=== PATIENT | female | born 1985 | race Caucasian/White ===

== ENCOUNTER 2017-02-10 09:42 | Day surgery (SDC) | payer MEDICAID ==
[2017-02-10] MEDS ORDERED: Ketorolac 30 MG/ML SDV IVPUSH ONE (11:39)
[2017-02-10] MEDS ORDERED: Sodium Chloride 0.9% 1,000 ML IV ONE (11:39)
[2017-02-10] MEDS ORDERED: Ondansetron 4 MG/2 ML SDV IVPUSH ONE (11:39)
--- NOTE | 2017-02-10 11:44 | EDM.PDOC ---
ED HPI GI/ABDOMINAL - General Chief Complaint: Abdominal Pain Stated Complaint: LOWER ABD PAIN Time Seen by Provider: 02/10/17 10:40 Source of Information: Reports: Patient, Family History Limitations: Reports: No limitations - History of Present Illness INITIAL COMMENTS - FREE TEXT/NARRATIVE: History of present illness: [21-year-old female comes in complaining of lower pelvic pain. Patient is unable to ascertain whether or not she is indicates that she has not had a menstrual cycle x2 months.] Review of systems: As per history of present illness and below otherwise all systems reviewed and negative. Past medical history: As per history of present illness and as reviewed below otherwise noncontributory. Surgical history: As per history of present illness and as reviewed below otherwise noncontributory. Social history: No reported history of drug or alcohol abuse. Family history: As per history of present illness and as reviewed below otherwise noncontributory. Physical exam: HEENT: Atraumatic, normocephalic, pupils reactive, negative for conjunctival pallor or scleral icterus, mucous membranes moist, throat clear, neck supple, nontender, trachea midline. Lungs: Clear to auscultation, breath sounds equal bilaterally, chest nontender. Heart: S1S2, regular, negative for clicks, rubs, or JVD. Abdomen: Soft, nondistended, nontender. Negative for masses or hepatosplenomegaly. Negative for costovertebral tenderness. Pelvis: Stable nontender. Genitourinary: Deferred. Rectal: Deferred. Extremities: Atraumatic, negative for cords or calf pain. Neurovascular unremarkable. Neuro: Awake, alert, oriented. Cranial nerves II through XII unremarkable. Cerebellum unremarkable. Motor and sensory unremarkable throughout. Exam nonfocal. Dr. Collins called with orders to give antibiotics, pain medication and admitted to the floor Diagnostics: [CBC, CMP, UA, urine hCG] Therapeutics: [IV fluid, Zofran, to] Impression: [Appendicitis] Plan: [Consult Dr. Collins admit to the floor] Definitive disposition and diagnosis as appropriate pending reevaluation and review of above. - Related Data Allergies/ADRs: Allergies Allergy/AdvReac Type Severity Reaction Status Date / Time Penicillins Allergy Other Verified 02/10/17 10:12 Home Meds: Home Meds . [No Known Home Meds] 11/13/16 [History] Past Medical History - Past Health History Medical/Surgical History: Denies Medical/Surgical History HEENT History: Reports: None Cardiovascular History: Reports: None Respiratory History: Reports: None Gastrointestinal History: Reports: None Genitourinary History: Reports: None [employer] History: Reports: None Musculoskeletal History: Reports: None Neurological History: Reports: None Psychiatric History: Reports: None Endocrine/Metabolic History: Reports: None Hematologic History: Reports: None Immunologic History: Reports: None Oncologic (Cancer) History: Reports: None Dermatologic History: Reports: None - Infectious Disease History Infectious Disease History: Reports: None - Past Surgical History Head Surgeries/Procedures: Reports: None HEENT Surgical History: Reports: None Cardiovascular Surgical History: Reports: None Respiratory Surgical History: Reports: None GI Surgical History: Reports: None Female Surgical History: Reports: None Endocrine Surgical History: Reports: None Neurological Surgical History: Reports: None Musculoskeletal Surgical History: Reports: None Oncologic Surgical History: Reports: None Dermatological Surgical History: Reports: None Social & Family History - Family History Family Medical History: Noncontributory - Tobacco Use Smoking Status *Q: Never Smoker - Caffeine Use Caffeine Use: Reports: None - Recreational Drug Use Recreational Drug Use: No ED ROS GENERAL - Review of Systems Review Of Systems: See Below (The history of present illness) ED EXAM, GI/ABD - Physical Exam Exam: See Below (See history of present illness) Course - Vital Signs Last Recorded V/S: Last Vital Signs Temp 36.6 C 02/10/17 10:09 Pulse 107 H 02/10/17 10:09 Resp 16 02/10/17 10:09 BP 110/61 02/10/17 10:09 Pulse Ox 96 02/10/17 10:09 - Orders/Labs/Meds Orders: Active Orders 24 hr Category Date Time Status Admission Status [Patient Status] [ADT] Stat ADT 02/10/17 13:59 Active Antiembolic Devices [RC] PER UNIT ROUTINE Care 02/10/17 14:00 Active Nothing Per Oral Diet [DIET] Diet 02/10/17 Dinner Active Lactated Ringers [Ringers, Lactated] 1,000 ml Med 02/10/17 14:00 Active IV ASDIRECTED Morphine Med 02/10/17 14:01 Active 1 mg IVPUSH Q1H PRN cefOXitin [Mefoxin] 2 gm Med 02/10/17 14:07 Ordered Sodium Chloride 0.9% [Normal Saline] 50 ml IV ONETIME Sequential Compression Device [OM.PC] Stat Oth 02/10/17 13:59 Ordered Medication Orders Lactated Ringer's (Ringers, Lactated) 1,000 mls @ 125 mls/hr IV ASDIRECTED KEV Cefoxitin Sodium 2 gm/ Sodium (Chloride) 50 mls @ 100 mls/hr IV ONETIME ONE Stop: 02/10/17 14:36 Morphine Sulfate (Morphine) 1 mg IVPUSH Q1H PRN PRN Reason: Pain Labs: Laboratory Tests 02/10/17 02/10/17 02/10/17 Range/Units 10:15 11:03 11:47 WBC 18.47 H (4.0-11.0) K/uL RBC 4.62 (4.30-5.90) M/uL Hgb 13.8 (12.0-16.0) g/dL Hct 41.0 (36.0-46.0) % MCV 88.7 (80.0-98.0) fL MCH 29.9 (27.0-32.0) pg MCHC 33.7 (31.0-37.0) g/dL RDW Std Deviation 43.7 (28.0-62.0) fl RDW Coeff of Del 14 (11.0-15.0) % Plt Count 275 (150-400) K/uL MPV 11.20 (7.40-12.00) fL Neut % (Auto) 84.8 H (48.0-80.0) % Lymph % (Auto) 7.5 L (16.0-40.0) % Giles % (Auto) 7.3 (0.0-15.0) % Eos % (Auto) 0.3 (0.0-7.0) % Baso % (Auto) 0.1 (0.0-1.5) % Neut # (Auto) 15.7 H (1.4-5.7) K/uL Lymph # (Auto) 1.4 (0.6-2.4) K/uL Giles # (Auto) 1.4 H (0.0-0.8) K/uL Eos # (Auto) 0.1 (0.0-0.7) K/uL Baso # (Auto) 0.0 (0.0-0.1) K/uL Nucleated RBC % 0.0 /100WBC Nucleated RBCs # 0 K/uL Sodium (136-146) mmol/L Potassium (3.5-5.1) mmol/L Chloride (98-110) mmol/L Carbon Dioxide (21-31) mmol/L BUN (6.0-23.0) mg/dL Creatinine (0.6-1.5) mg/dL Est Cr Clr Drug Dosing mL/min Estimated GFR (MDRD) ml/min Glucose (60-110) mg/dL Calcium (8.8-10.8) mg/dL Total Bilirubin (0.1-1.5) mg/dL AST (5-40) IU/L ALT (8-54) IU/L Alkaline Phosphatase (40-150) Total Protein (6.0-8.0) g/dL Albumin (3.5-5.0) g/dL Globulin (2.0-3.5) g/dL Albumin/Globulin Ratio (1.3-2.8) Urine Color YELLOW Urine Appearance CLEAR Urine pH 6.0 (5.0-8.0) Ur Specific [place] <= 1.005 (1.001-1.035) Urine Protein NEGATIVE (NEGATIVE) mg/dL Urine Glucose (UA) NEGATIVE (NEGATIVE) mg/dL Urine Ketones NEGATIVE (NEGATIVE) mg/dL Urine Occult Blood TRACE-INTACT (NEGATIVE) Urine Nitrite NEGATIVE (NEGATIVE) Urine Bilirubin NEGATIVE (NEGATIVE) Urine Urobilinogen 0.2 (<2.0) EU/dL Ur Leukocyte Esterase TRACE (NEGATIVE) Urine RBC 0-1 (0-2/HPF) Urine WBC 1-4 (0-5/HPF) Ur Epithelial Cells FEW (NONE-FEW) Urine Bacteria FEW (NEGATIVE) Urine HCG, Qual NEGATIVE (NEGATIVE) 02/10/17 Range/Units 11:47 WBC (4.0-11.0) K/uL RBC (4.30-5.90) M/uL Hgb (12.0-16.0) g/dL Hct (36.0-46.0) % MCV (80.0-98.0) fL MCH (27.0-32.0) pg MCHC (31.0-37.0) g/dL RDW Std Deviation (28.0-62.0) fl RDW Coeff of Del (11.0-15.0) % Plt Count (150-400) K/uL MPV (7.40-12.00) fL Neut % (Auto) (48.0-80.0) % Lymph % (Auto) (16.0-40.0) % Giles % (Auto) (0.0-15.0) % Eos % (Auto) (0.0-7.0) % Baso % (Auto) (0.0-1.5) % Neut # (Auto) (1.4-5.7) K/uL Lymph # (Auto) (0.6-2.4) K/uL Giles # (Auto) (0.0-0.8) K/uL Eos # (Auto) (0.0-0.7) K/uL Baso # (Auto) (0.0-0.1) K/uL Nucleated RBC % /100WBC Nucleated RBCs # K/uL Sodium 137 (136-146) mmol/L Potassium 5.6 H (3.5-5.1) mmol/L Chloride 106 (98-110) mmol/L Carbon Dioxide 20 L (21-31) mmol/L BUN 15 (6.0-23.0) mg/dL Creatinine 0.7 (0.6-1.5) mg/dL Est Cr Clr Drug Dosing 91.25 mL/min Estimated GFR (MDRD) > 60.0 ml/min Glucose 92 (60-110) mg/dL Calcium 9.8 (8.8-10.8) mg/dL Total Bilirubin 1.0 (0.1-1.5) mg/dL AST 37 (5-40) IU/L ALT 29 (8-54) IU/L Alkaline Phosphatase 141 (40-150) Total Protein 8.2 H (6.0-8.0) g/dL Albumin 4.5 (3.5-5.0) g/dL Globulin 3.7 H (2.0-3.5) g/dL Albumin/Globulin Ratio 1.2 L (1.3-2.8) Urine Color Urine Appearance Urine pH (5.0-8.0) Ur Specific [place] (1.001-1.035) Urine Protein (NEGATIVE) mg/dL Urine Glucose (UA) (NEGATIVE) mg/dL Urine Ketones (NEGATIVE) mg/dL Urine Occult Blood (NEGATIVE) Urine Nitrite (NEGATIVE) Urine Bilirubin (NEGATIVE) Urine Urobilinogen (<2.0) EU/dL Ur Leukocyte Esterase (NEGATIVE) Urine RBC (0-2/HPF) Urine WBC (0-5/HPF) Ur Epithelial Cells (NONE-FEW) Urine Bacteria (NEGATIVE) Urine HCG, Qual (NEGATIVE) Meds: Medications Generic Name Dose Route Start Last Admin Trade Name Freq PRN Reason Stop Dose Admin Lactated Ringer's 1,000 mls @ 125 mls/hr 02/10/17 14:00 Ringers, Lactated IV ASDIRECTED KEV Cefoxitin Sodium 2 gm/ Sodium 50 mls @ 100 mls/hr 02/10/17 14:07 Chloride IV 02/10/17 14:36 ONETIME ONE Morphine Sulfate 1 mg 02/10/17 14:01 Morphine IVPUSH Q1H PRN Pain Discontinued Medications Generic Name Dose Route Start Last Admin Trade Name Freq PRN Reason Stop Dose Admin Acetaminophen 1,000 mg 02/10/17 11:58 02/10/17 12:04 Tylenol Extra Strength PO 02/10/17 11:59 1,000 mg ONETIME ONE Administration Sodium Chloride 1,000 mls @ 999 mls/hr 02/10/17 11:39 02/10/17 11:52 Normal Saline IV 02/10/17 12:39 999 mls/hr STAT ONE Administration Cefoxitin Sodium 2 gm/ Premix 50 mls @ 100 mls/hr 02/10/17 13:54 IV 02/10/17 14:23 ONETIME ONE Cefoxitin Sodium 1 gm/ Premix 50 mls @ 100 mls/hr 02/10/17 13:58 IV 02/10/17 14:27 ONETIME ONE Iopamidol 100 ml 02/10/17 13:16 02/10/17 13:29 Isovue Multipack-370 (76%) IVPUSH 02/10/17 13:17 100 ml ONETIME STA Administration Ketorolac Tromethamine 30 mg 02/10/17 11:39 02/10/17 12:43 Toradol IVPUSH 02/10/17 11:40 Not Given ONETIME ONE Ondansetron HCl 8 mg 02/10/17 11:39 02/10/17 11:52 Zofran IVPUSH 02/10/17 11:40 8 mg ONETIME ONE Administration Departure - Departure Time of Disposition: 14:08 Disposition: Admitted As Inpatient 65 Condition: good Clinical Impression: Appendicitis Forms: ED Department Discharge - My Orders Last 24 Hours: My Active Orders 02/10/17 14:07 cefOXitin [Mefoxin] 2 gm Sodium Chloride 0.9% [Normal Saline] 50 ml IV ONETIME - Assessment/Plan Last 24 Hours: My Active Orders 02/10/17 14:07 cefOXitin [Mefoxin] 2 gm Sodium Chloride 0.9% [Normal Saline] 50 ml IV ONETIME
[2017-02-10] MEDS ORDERED: Acetaminophen 500 MG Tab PO ONE (11:58)
[2017-02-10 12:18] LABS: CHLORIDE,CL 106 mmol/L (98-110); SODIUM,NA 137 mmol/L (136-146)
[2017-02-10] MEDS ORDERED: Iopamidol 755 MG/ML 500 ML Multipack Bottle IVPUSH STA (13:16)
--- NOTE | 2017-02-10 13:39 | CT ---
CT of the abdomen and pelvis with contrast. HISTORY: Pain TECHNIQUE: Axial CT images were obtained of the abdomen and pelvis following administration of 100 m L of Isovue-370 in the left antecubital fossa without complication. Coronal and sagittal reconstruct ions obtained. FINDINGS: There is a 3 to 4 mm subpleural nodule within the left lower lobe, otherwise the lung bases are taylor r. The liver, spleen, adrenal glands, and pancreas appear normal. The gallbladder is unremarkable. No b ulky retroperitoneal lymphadenopathy or abdominal ascites. The kidneys enhance and function symmetri susan without evidence of obstructive uropathy. The large and small bowel appear normal in caliber without evidence of obstruction. The appendix is mildly prominent in size and demonstrates mild enhancement with a trace periappendiceal stranding. U rinary bladder appears normal. The uterus and ovaries appear normal. No bulky pelvic lymphadenopathy or significant free pelvic fluid. No suspicious osseous abnormalities identified. IMPRESSION: 1. Appendicitis without evidence of rupture. 2. Small pulmonary nodules the left lower lobe, likely benign given the patient's age.
[2017-02-10] MEDS ORDERED: cefOXitin 2 GM in Premix Bag 1 BAG IV ONE ×2 (13:54→14:45)
[2017-02-10] MEDS ORDERED: cefOXitin 1 GM in Premix Bag 1 BAG IV ONE (13:58)
[2017-02-10] MEDS ORDERED: Lactated Ringers 1,000 ML IV SCH ×2 (14:00→19:00)
[2017-02-10] MEDS ORDERED: Morphine 2 MG/ML Syringe IVPUSH PRN (14:01)
[2017-02-10] MEDS ORDERED: cefOXitin 2 GM in Sodium Chloride 0.9% 50 ML IV ONE (14:07)
[2017-02-10] MEDS ORDERED: Morphine 2 MG/ML Syringe IVPUSH ONE (14:38)
[2017-02-10] MEDS ORDERED: Bupivacaine 0.5% 10 ML SDV ONE ×2 (15:35→17:09)
[2017-02-10] MEDS ORDERED: ceFAZolin 1 GM Vial ONE (15:35)
[2017-02-10] MEDS ORDERED: Lidocaine 2% 5 ML SDV ONE (16:32)
[2017-02-10] MEDS ORDERED: Midazolam 1 MG/ML 2 ML SDV ONE (16:32)
[2017-02-10] MEDS ORDERED: Succinylcholine/Normal Saline 200 MG/10 ML Syringe ONE (16:32)
[2017-02-10] MEDS ORDERED: fentaNYL 100 MCG/2 ML SDV ONE (16:32)
[2017-02-10] MEDS ORDERED: Rocuronium 10 MG/ML 10 ML Syringe ONE (16:32)
[2017-02-10] MEDS ORDERED: Propofol 200 MG/20 ML SDV ONE (16:32)
--- NOTE | 2017-02-10 17:15 | PCM.HP ---
H&P History of Present Illness - General Date of Service: 02/10/17 Admit Problem/Dx: Admission Diagnosis/Problem Admission Diagnosis/Problem Appendicitis Source of Information: Patient, Family History Limitations: Reports: Language barrier (Patient is primarily Macedonian- speaking.) - History of Present Illness Onset of Symptoms: Reports: today Duration of Symptoms: Reports: Hour(s): Location: Reports: abdomen Quality: Reports: Ache, Pressure Severity: moderate Improves with: Reports: Rest Worsens with: Reports: Movement Context: Reports: sick contact Associated Symptoms: Reports: loss of appetite, nausea/vomiting Generalized Pain Score (Numeric/FACES): 5 - Related Data Allergies/Adverse Reactions: Allergies Allergy/AdvReac Type Severity Reaction Status Date / Time Penicillins Allergy Other Verified 02/10/17 10:12 Home Medications: Home Meds . 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: Musculoskeletal History: Reports: None Neurological History: Reports: None Psychiatric History: Reports: None Endocrine/Metabolic History: Reports: None Hematologic History: Reports: None Immunologic History: Reports: None Oncologic (Cancer) History: Reports: None Dermatologic History: Reports: None - Infectious Disease History Infectious Disease History: Reports: None - Past Surgical History Head Surgeries/Procedures: Reports: None HEENT Surgical History: Reports: None Cardiovascular Surgical History: Reports: None Respiratory Surgical History: Reports: None GI Surgical History: Reports: None Female Surgical History: Reports: None Endocrine Surgical History: Reports: None Neurological Surgical History: Reports: None Musculoskeletal Surgical History: Reports: None Oncologic Surgical History: Reports: None Dermatological Surgical History: Reports: None Social & Family History - Family History Family Medical History: Noncontributory Endocrine/Metabolic: Reports: Diabetes, type II - Tobacco Use Smoking Status *Q: Never Smoker - Caffeine Use Caffeine Use: Reports: None - Recreational Drug Use Recreational Drug Use: No H&P Review of Systems - Review of Systems: Review Of Systems: See Below General: Reports: decreased appetite. Denies: fever, chills, malaise, weight loss HEENT: Reports: no symptoms Pulmonary: Denies: Shortness of Breath, Wheezing Cardiovascular: Denies: chest pain, palpitations Gastrointestinal: Reports: Abdominal pain, Anorexia, Decreased appetite, Vomiting. Denies: Black stool, Bloody stool, Constipation, Diarrhea, Hematochezia, Melena Genitourinary: Denies: dysuria, frequency, burning, pain, urgency Musculoskeletal: Reports: no symptoms Skin: Denies: cyanosis, jaundice, pallor, diaphoresis Psychiatric: Denies: confusion, depression, mood lability, anxiety Neurological: Reports: No Symptoms Hematologic/Lymphatic: Reports: no symptoms Immunologic: Reports: no symptoms Exam - Exam Exam: See Below - Vital Signs Vital Signs: Last Vital Signs Temp 99.2 F 02/10/17 14:49 Pulse 82 02/10/17 14:49 Resp 18 02/10/17 14:49 BP 132/76 02/10/17 14:49 Pulse Ox 98 02/10/17 14:49 Weight: 130 lb 8.218 oz - Exam General: alert, oriented, cooperative, mild distress HEENT: Conjunctiva clear, EACs clear, EOMI, Mucosa moist & pink, PERRLA. No: Scleral icterus Neck: supple, trachea midline Lungs: Clear to auscultation, Normal respiratory effort Cardiovascular: regular rate, regular rhythm, normal S1, normal S2. No: tachycardia Abdomen: soft, peritoneal signs, rebound, tenderness, hypoactive bowel sounds, McBurney's sign, Rovsing's sign. No: distention, guarding, rigidity (Female) Exam: Deferred Rectal (Female) Exam: Deferred Back Exam: normal inspection, full range of motion Extremities: normal inspection, normal pulses Skin: warm, dry, intact Neurological: cranial nerves intact Neuro Extensive - Mental Status: alert, oriented x3, normal mood/affect Psychiatric: alert, normal affect, normal mood - Patient Data Lab Results last 24 hrs: Laboratory Results - last 24 hr 02/10/17 02/10/17 02/10/17 Range/Units 10:15 11:03 11:47 WBC 18.47 H (4.0-11.0) K/uL RBC 4.62 (4.30-5.90) M/uL Hgb 13.8 (12.0-16.0) g/dL Hct 41.0 (36.0-46.0) % MCV 88.7 (80.0-98.0) fL MCH 29.9 (27.0-32.0) pg MCHC 33.7 (31.0-37.0) g/dL RDW Std Deviation 43.7 (28.0-62.0) fl RDW Coeff of Del 14 (11.0-15.0) % Plt Count 275 (150-400) K/uL MPV 11.20 (7.40-12.00) fL Neut % (Auto) 84.8 H (48.0-80.0) % Lymph % (Auto) 7.5 L (16.0-40.0) % Henry % (Auto) 7.3 (0.0-15.0) % Eos % (Auto) 0.3 (0.0-7.0) % Baso % (Auto) 0.1 (0.0-1.5) % Neut # (Auto) 15.7 H (1.4-5.7) K/uL Lymph # (Auto) 1.4 (0.6-2.4) K/uL Henry # (Auto) 1.4 H (0.0-0.8) K/uL Eos # (Auto) 0.1 (0.0-0.7) K/uL Baso # (Auto) 0.0 (0.0-0.1) K/uL Nucleated RBC % 0.0 /100WBC Nucleated RBCs # 0 K/uL Sodium (136-146) mmol/L Potassium (3.5-5.1) mmol/L Chloride (98-110) mmol/L Carbon Dioxide (21-31) mmol/L BUN (6.0-23.0) mg/dL Creatinine (0.6-1.5) mg/dL Est Cr Clr Drug Dosing mL/min Estimated GFR (MDRD) ml/min Glucose (60-110) mg/dL Calcium (8.8-10.8) mg/dL Total Bilirubin (0.1-1.5) mg/dL AST (5-40) IU/L ALT (8-54) IU/L Alkaline Phosphatase (40-150) Total Protein (6.0-8.0) g/dL Albumin (3.5-5.0) g/dL Globulin (2.0-3.5) g/dL Albumin/Globulin Ratio (1.3-2.8) Urine Color YELLOW Urine Appearance CLEAR Urine pH 6.0 (5.0-8.0) Ur Specific [place] <= 1.005 (1.001-1.035) Urine Protein NEGATIVE (NEGATIVE) mg/dL Urine Glucose (UA) NEGATIVE (NEGATIVE) mg/dL Urine Ketones NEGATIVE (NEGATIVE) mg/dL Urine Occult Blood TRACE-INTACT (NEGATIVE) Urine Nitrite NEGATIVE (NEGATIVE) Urine Bilirubin NEGATIVE (NEGATIVE) Urine Urobilinogen 0.2 (<2.0) EU/dL Ur Leukocyte Esterase TRACE (NEGATIVE) Urine RBC 0-1 (0-2/HPF) Urine WBC 1-4 (0-5/HPF) Ur Epithelial Cells FEW (NONE-FEW) Urine Bacteria FEW (NEGATIVE) Urine HCG, Qual NEGATIVE (NEGATIVE) 02/10/17 Range/Units 11:47 WBC (4.0-11.0) K/uL RBC (4.30-5.90) M/uL Hgb (12.0-16.0) g/dL Hct (36.0-46.0) % MCV (80.0-98.0) fL MCH (27.0-32.0) pg MCHC (31.0-37.0) g/dL RDW Std Deviation (28.0-62.0) fl RDW Coeff of Del (11.0-15.0) % Plt Count (150-400) K/uL MPV (7.40-12.00) fL Neut % (Auto) (48.0-80.0) % Lymph % (Auto) (16.0-40.0) % Henry % (Auto) (0.0-15.0) % Eos % (Auto) (0.0-7.0) % Baso % (Auto) (0.0-1.5) % Neut # (Auto) (1.4-5.7) K/uL Lymph # (Auto) (0.6-2.4) K/uL [place] # (Auto) (0.0-0.8) K/uL Eos # (Auto) (0.0-0.7) K/uL Baso # (Auto) (0.0-0.1) K/uL Nucleated RBC % /100WBC Nucleated RBCs # K/uL Sodium 137 (136-146) mmol/L Potassium 5.6 H (3.5-5.1) mmol/L Chloride 106 (98-110) mmol/L Carbon Dioxide 20 L (21-31) mmol/L BUN 15 (6.0-23.0) mg/dL Creatinine 0.7 (0.6-1.5) mg/dL Est Cr Clr Drug Dosing 91.25 mL/min Estimated GFR (MDRD) > 60.0 ml/min Glucose 92 (60-110) mg/dL Calcium 9.8 (8.8-10.8) mg/dL Total Bilirubin 1.0 (0.1-1.5) mg/dL AST 37 (5-40) IU/L ALT 29 (8-54) IU/L Alkaline Phosphatase 141 (40-150) Total Protein 8.2 H (6.0-8.0) g/dL Albumin 4.5 (3.5-5.0) g/dL Globulin 3.7 H (2.0-3.5) g/dL Albumin/Globulin Ratio 1.2 L (1.3-2.8) Urine Color Urine Appearance Urine pH (5.0-8.0) Ur Specific [place] (1.001-1.035) Urine Protein (NEGATIVE) mg/dL Urine Glucose (UA) (NEGATIVE) mg/dL Urine Ketones (NEGATIVE) mg/dL Urine Occult Blood (NEGATIVE) Urine Nitrite (NEGATIVE) Urine Bilirubin (NEGATIVE) Urine Urobilinogen (<2.0) EU/dL Ur Leukocyte Esterase (NEGATIVE) Urine RBC (0-2/HPF) Urine WBC (0-5/HPF) Ur Epithelial Cells (NONE-FEW) Urine Bacteria (NEGATIVE) Urine HCG, Qual (NEGATIVE) Result Diagrams: 02/10/17 11:47 02/10/17 11:47 *Q Meaningful Use (ADM) - VTE *Q VTE Criteria *Q: - Stroke *Q Stroke Criteria *Q: - AMI *Q AMI Criteria *Q: - Problem List (1) Right lower quadrant abdominal pain SNOMED Code(s): 630826663 ICD Code: R10.31 - RIGHT LOWER QUADRANT PAIN Status: Acute Priority: Medium Current Visit: Yes (2) Appendicitis SNOMED Code(s): 13837647 ICD Code: K37 - UNSPECIFIED APPENDICITIS Status: Acute Priority: Medium Current Visit: Yes Qualifiers: Appendicitis type: acute appendicitis Problem List Initiated/Reviewed/Updated: Yes Orders Last 24hrs: Active Orders 24 hr Category Date Time Status Admission Status [Patient Status] [ADT] Stat ADT 02/10/17 13:59 Active Antiembolic Devices [RC] PER UNIT ROUTINE Care 02/10/17 14:00 Active Painter Catheter Insertion [Insert Urinary Catheter] [OM. Care 02/10/17 16:00 Ordered PC] Q24H Skin Preparation [RC] .PREOP Care 02/10/17 15:46 Active Urinary Catheter Assessment [RC] ASDIRECTED Care 02/10/17 15:46 Active Urinary Catheter Assessment [RC] ASDIRECTED Care 02/10/17 15:47 Active Lactated Ringers [Ringers, Lactated] 1,000 ml Med 02/10/17 14:00 Active IV ASDIRECTED Morphine Med 02/10/17 14:01 Active 1 mg IVPUSH Q1H PRN Sequential Compression Device [OM.PC] Stat Oth 02/10/17 13:59 Ordered Resuscitation Status Routine Resus Stat 02/10/17 15:46 Ordered Medication Orders Lactated Ringer's (Ringers, Lactated) 1,000 mls @ 125 mls/hr IV ASDIRECTED KEV Last Admin: 02/10/17 16:43 Dose: 125 mls/hr Morphine Sulfate (Morphine) 1 mg IVPUSH Q1H PRN PRN Reason: Pain Assessment/Plan Comment:: Laparoscopic appendectomy, possible open appendectomy. Both operative procedures, along with the risks, including, but not limited to, bleeding, infection, pneumonia, deep venous thrombosis, pulmonary emboli, myocardial infarction, and adjacent organ injury have been reviewed with the patient who voices understanding, offers no questions and agrees to proceed.
--- NOTE | 2017-02-10 17:23 | PCM.PREANE ---
Preanesthetic Assessment - Procedure Proposed Procedure: Laparoscopic appendectomy - Anesthesia/Transfusion/Family Hx Anesthesia History: No Prior Anesthesia Family History of Anesthesia Reaction: No Transfusion History: No Prior Transfusion(s) Additional History: Patient 4 months s/p male. Currently breast pumping with and baby at bedsice. She speaks no Romanian and does not indicate any understanding. communicated with her. Advised of considerations for breast milk effected by anesthetic. - Review of Systems General: Malaise Pulmonary: No Symptoms Cardiovascular: No Symptoms Gastrointestinal: Abdominal pain Neurological: No Symptoms Other: Reports: None - Physical Assessment O2 Sat by Pulse Oximetry: 98 Respiratory Rate: 18 Vital Signs: Last Vital Signs Temp 99.2 F 02/10/17 14:49 Pulse 82 02/10/17 14:49 Resp 18 02/10/17 14:49 BP 132/76 02/10/17 14:49 Pulse Ox 98 02/10/17 14:49 Height: 5 ft 3 in Weight: 130 lb 8.218 oz ASA Class: 2E Mental Status: Alert & Oriented x3 Airway Class: Mallampati = 1 Dentition: Reports: Normal Dentition Thyro-Mental Finger Breadths: 3 Mouth Opening Finger Breadths: 3 ROM/Head Extension: Full Lungs: Clear to auscultation, Normal respiratory effort Cardiovascular: Regular Rate, Regular Rhythm, No Murmurs - Lab Values: Laboratory Last Values WBC 18.47 K/uL (4.0-11.0) H 02/10/17 11:47 RBC 4.62 M/uL (4.30-5.90) 02/10/17 11:47 Hgb 13.8 g/dL (12.0-16.0) 02/10/17 11:47 Hct 41.0 % (36.0-46.0) 02/10/17 11:47 MCV 88.7 fL (80.0-98.0) 02/10/17 11:47 MCH 29.9 pg (27.0-32.0) 02/10/17 11:47 MCHC 33.7 g/dL (31.0-37.0) 02/10/17 11:47 RDW Std Deviation 43.7 fl (28.0-62.0) 02/10/17 11:47 RDW Coeff of Del 14 % (11.0-15.0) 02/10/17 11:47 Plt Count 275 K/uL (150-400) 02/10/17 11:47 MPV 11.20 fL (7.40-12.00) 02/10/17 11:47 Neut % (Auto) 84.8 % (48.0-80.0) H 02/10/17 11:47 Lymph % (Auto) 7.5 % (16.0-40.0) L 02/10/17 11:47 [place] % (Auto) 7.3 % (0.0-15.0) 02/10/17 11:47 Eos % (Auto) 0.3 % (0.0-7.0) 02/10/17 11:47 Baso % (Auto) 0.1 % (0.0-1.5) 02/10/17 11:47 Neut # (Auto) 15.7 K/uL (1.4-5.7) H 02/10/17 11:47 Lymph # (Auto) 1.4 K/uL (0.6-2.4) 02/10/17 11:47 Daw[place] # (Auto) 1.4 K/uL (0.0-0.8) H 02/10/17 11:47 Eos # (Auto) 0.1 K/uL (0.0-0.7) 02/10/17 11:47 Baso # (Auto) 0.0 K/uL (0.0-0.1) 02/10/17 11:47 Nucleated RBC % 0.0 /100WBC 02/10/17 11:47 Nucleated RBCs # 0 K/uL 02/10/17 11:47 Sodium 137 mmol/L (136-146) 02/10/17 11:47 Potassium 5.6 mmol/L (3.5-5.1) H 02/10/17 11:47 Chloride 106 mmol/L (98-110) 02/10/17 11:47 Carbon Dioxide 20 mmol/L (21-31) L 02/10/17 11:47 BUN 15 mg/dL (6.0-23.0) 02/10/17 11:47 Creatinine 0.7 mg/dL (0.6-1.5) 02/10/17 11:47 Est Cr Clr Drug Dosing 91.25 mL/min 02/10/17 11:47 Estimated GFR (MDRD) > 60.0 ml/min 02/10/17 11:47 Glucose 92 mg/dL (60-110) 02/10/17 11:47 Calcium 9.8 mg/dL (8.8-10.8) 02/10/17 11:47 Total Bilirubin 1.0 mg/dL (0.1-1.5) 02/10/17 11:47 AST 37 IU/L (5-40) 02/10/17 11:47 ALT 29 IU/L (8-54) 02/10/17 11:47 Alkaline Phosphatase 141 (40-150) 02/10/17 11:47 Total Protein 8.2 g/dL (6.0-8.0) H 02/10/17 11:47 Albumin 4.5 g/dL (3.5-5.0) 02/10/17 11:47 Globulin 3.7 g/dL (2.0-3.5) H 02/10/17 11:47 Albumin/Globulin Ratio 1.2 (1.3-2.8) L 02/10/17 11:47 Urine Color YELLOW 02/10/17 10:15 Urine Appearance CLEAR 02/10/17 10:15 Urine pH 6.0 (5.0-8.0) 02/10/17 10:15 Ur Specific [place] <= 1.005 (1.001-1.035) 02/10/17 10:15 Urine Protein NEGATIVE mg/dL (NEGATIVE) 02/10/17 10:15 Urine Glucose (UA) NEGATIVE mg/dL (NEGATIVE) 02/10/17 10:15 Urine Ketones NEGATIVE mg/dL (NEGATIVE) 02/10/17 10:15 Urine Occult Blood TRACE-INTACT (NEGATIVE) 02/10/17 10:15 Urine Nitrite NEGATIVE (NEGATIVE) 02/10/17 10:15 Urine Bilirubin NEGATIVE (NEGATIVE) 02/10/17 10:15 Urine Urobilinogen 0.2 EU/dL (<2.0) 02/10/17 10:15 Ur Leukocyte Esterase TRACE (NEGATIVE) 02/10/17 10:15 Urine RBC 0-1 (0-2/HPF) 02/10/17 10:15 Urine WBC 1-4 (0-5/HPF) 02/10/17 10:15 Ur Epithelial Cells FEW (NONE-FEW) 02/10/17 10:15 Urine Bacteria FEW (NEGATIVE) 02/10/17 10:15 Urine HCG, Qual NEGATIVE (NEGATIVE) 02/10/17 11:03 - Allergies Allergies/Adverse Reactions: Allergies Allergy/AdvReac Type Severity Reaction Status Date / Time Penicillins Allergy Other Verified 02/10/17 10:12 - Blood Blood Available: No - Anesthesia Plan Pre-Op Medication Ordered: None - Acknowledgements Anesthesia Type Planned: General Anesthesia Pt an Appropriate Candidate for the Planned Anesthesia: Yes Alternatives and Risks of Anesthesia Discussed w Pt/Guardian: Yes Pt/Guardian Understands and Agrees with Anesthesia Plan: Yes PreAnesthesia Questionnaire - Past Health History Medical/Surgical History: Denies Medical/Surgical History HEENT History: Reports: None Cardiovascular History: Reports: None Respiratory History: Reports: None Gastrointestinal History: Reports: None Genitourinary History: Reports: None 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: Musculoskeletal History: Reports: None Neurological History: Reports: None Psychiatric History: Reports: None Endocrine/Metabolic History: Reports: None Hematologic History: Reports: None Immunologic History: Reports: None Oncologic (Cancer) History: Reports: None Dermatologic History: Reports: None - Infectious Disease History Infectious Disease History: Reports: None - Past Surgical History Head Surgeries/Procedures: Reports: None HEENT Surgical History: Reports: None Cardiovascular Surgical History: Reports: None Respiratory Surgical History: Reports: None GI Surgical History: Reports: None Female Surgical History: Reports: None Endocrine Surgical History: Reports: None Neurological Surgical History: Reports: None Musculoskeletal Surgical History: Reports: None Oncologic Surgical History: Reports: None Dermatological Surgical History: Reports: None - SUBSTANCE USE Smoking Status *Q: Never Smoker Recreational Drug Use History: No - HOME MEDS Home Medications: Home Meds . [No Known Home Meds] 11/13/16 [History] - CURRENT (IN HOUSE) MEDS Current Meds: Current Medications Lactated Ringer's (Ringers, Lactated) 1,000 mls @ 125 mls/hr IV ASDIRECTED [facility] Last Admin: 02/10/17 16:43 Dose: 125 mls/hr Morphine Sulfate (Morphine) 1 mg IVPUSH Q1H PRN PRN Reason: Pain Discontinued Medications Acetaminophen (Tylenol Extra Strength) 1,000 mg PO ONETIME ONE Stop: 02/10/17 11:59 Last Admin: 02/10/17 12:04 Dose: 1,000 mg Bupivacaine HCl (Sensorcaine-Mpf 0.5%) Confirm Administered Dose 20 ml .ROUTE .STK-MED ONE Stop: 02/10/17 15:36 Bupivacaine HCl (Sensorcaine-Mpf 0.5%) Confirm Administered Dose 10 ml .ROUTE .STK-MED ONE Stop: 02/10/17 17:10 Cefazolin Sodium (Ancef) Confirm Administered Dose 1 gm .ROUTE .STK-MED ONE Stop: 02/10/17 15:36 Fentanyl (Sublimaze) Confirm Administered Dose 100 mcg .ROUTE .STK-MED ONE Stop: 02/10/17 16:33 Sodium Chloride (Normal Saline) 1,000 mls @ 999 mls/hr IV STAT ONE Stop: 02/10/17 12:39 Last Admin: 02/10/17 11:52 Dose: 999 mls/hr Cefoxitin Sodium 2 gm/ Premix 50 mls @ 100 mls/hr IV ONETIME ONE Stop: 02/10/17 14:23 Last Admin: 02/10/17 14:41 Dose: Not Given Cefoxitin Sodium 1 gm/ Premix 50 mls @ 100 mls/hr IV ONETIME ONE Stop: 02/10/17 14:27 Last Admin: 02/10/17 14:40 Dose: Not Given Cefoxitin Sodium 2 gm/ Premix 50 mls @ 100 mls/hr IV ONETIME ONE Stop: 02/10/17 15:14 Last Admin: 02/10/17 14:44 Dose: 100 mls/hr Iopamidol (Isovue Multipack-370 (76%)) 100 ml IVPUSH ONETIME STA Stop: 02/10/17 13:17 Last Admin: 02/10/17 13:29 Dose: 100 ml Ketorolac Tromethamine (Toradol) 30 mg IVPUSH ONETIME ONE Stop: 02/10/17 11:40 Last Admin: 02/10/17 12:43 Dose: Not Given Lidocaine (Xylocaine-Mpf 2%) Confirm Administered Dose 5 ml .ROUTE .STK-MED ONE Stop: 02/10/17 16:33 Midazolam HCl (Versed 1 Mg/Ml) Confirm Administered Dose 2 mg .ROUTE .STK-MED ONE Stop: 02/10/17 16:33 Morphine Sulfate (Morphine) 2 mg IVPUSH ONETIME ONE Stop: 02/10/17 14:39 Last Admin: 02/10/17 14:40 Dose: Not Given Ondansetron HCl (Zofran) 8 mg IVPUSH ONETIME ONE Stop: 02/10/17 11:40 Last Admin: 02/10/17 11:52 Dose: 8 mg Propofol (Diprivan 20 Ml) Confirm Administered Dose 200 mg .ROUTE .STK-MED ONE Stop: 02/10/17 16:33 Rocuronium [place] (Zemuron) Confirm Administered Dose 100 mg .ROUTE .STK-MED ONE Stop: 02/10/17 16:33 Succinylcholine Chloride (Succinylcholine In Ns Pf) Confirm Administered Dose 200 mg .ROUTE .STK-MED ONE Stop: 02/10/17 16:33
[2017-02-10] MEDS ORDERED: fentaNYL 100 MCG/2 ML SDV IVPUSH PRN (17:24)
[2017-02-10] MEDS ORDERED: Phenylephrine/Normal Saline 100 MCG/ML 10 ML Syringe ONE (17:53)
[2017-02-10] MEDS ORDERED: Neostigmine Methylsulfate 1 MG/ML 5 ML Syringe ONE (18:31)
[2017-02-10] MEDS ORDERED: Ondansetron 4 MG/2 ML SDV ONE (18:31)
[2017-02-10] MEDS ORDERED: Ketorolac 30 MG/ML SDV ONE (18:31)
[2017-02-10] MEDS ORDERED: Morphine 10 MG/ML Syringe IVPUSH PRN (18:58)
[2017-02-10] MEDS ORDERED: Acetaminophen/HYDROcodone 325-5 MG Tab PO PRN (18:58)
--- NOTE | 2017-02-10 19:04 | PCM.OPNOTE ---
- General Post-Op/Procedure Note Date of Surgery/Procedure: 02/10/17 Operative Procedure(s): Laparoscopic appendectomy Pre Op Diagnosis: Acute abdomen. Appendicitis on CT scan. Post-Op Diagnosis: Early acute appendicitis Anesthesia Technique: General ET tube (IIE) Primary Surgeon: Tao Collins Fluid Replacement, Intraop: 1,600 Output, Urine Amount: 400 EBL in mLs: 5 Condition: Good Free Text/Narrative:: Intake & Output 02/10/17 02/10/17 02/10/17 03:59 11:59 19:59 Intake Total 435 Output Total 0 Balance 435 Dictation [id number]
--- NOTE | 2017-02-10 19:19 | PCM.POSTAN ---
POST ANESTHESIA ASSESSMENT - MENTAL STATUS Mental Status: alert, oriented - RESPIRATORY Respiratory Status: respiratory rate WNL, airway patent, O2 saturation stable - CARDIOVASCULAR CV Status: pulse rate WNL, blood pressure stable - GASTROINTESTINAL GI Status: no symptoms - POST OP HYDRATION Hydration Status: adequate & stable
--- NOTE | 2017-02-10 20:32 | PCM48HPAN ---
Post Anesthesia Note - EVALUATION WITHIN 48HRS OF ANESTHETIC Vital Signs in Normal Range: Yes Patient Participated in Evaluation: Yes Respiratory Function Stable: Yes Airway Patent: Yes Cardiovascular Function Stable: Yes Hydration Status Stable: Yes Pain Control Satisfactory: Yes Nausea and Vomiting Control Satisfactory: Yes Mental Status Recovered: Yes
[2017-02-10 21:29] VITALS: BP 107/70
--- NOTE | 2017-02-10 23:41 | OR ---
SURGEON: Tao Collins M.D. DATE OF PROCEDURE: 02/10/2017 OPERATION PERFORMED: Laparoscopic appendectomy. ANESTHESIA: General endotracheal. ASA CLASSIFICATION: IIE. PREOPERATIVE DIAGNOSIS: Acute abdomen appendicitis on CT scan. POSTOPERATIVE DIAGNOSIS: Early acute appendicitis without perforation. DESCRIPTION OF PROCEDURE: The patient was taken to the operating room, placed on the operating table in supine position. Time-out was called for appropriate identification of patient and procedure. Thigh-high TEDs and sequential compression boots were placed. Following satisfactory attainment of general endotracheal anesthesia, a Painter catheter was placed in the patient's urinary bladder. The abdomen was then prepped with DuraPrep solution. Sterile drapes were applied. The skin just above the umbilicus was infiltrated with 0.5% Marcaine solution. The skin incision was made and deepened through the subcutaneous tissue. Hemostasis was obtained with the use of electrocautery. The Veress needle was introduced into the peritoneal cavity. Saline drop test was positive. Carbon dioxide pneumoperitoneum was established with the release set at 13 cm of water. Once we had satisfactory pneumoperitoneum, 5 mm camera and port were placed through the supraumbilical incision. The patient was now positioned with her head down and rolled to the left. Under camera vision, 12 mm suprapubic and 5 mm left lower quadrant ports were placed. Each incision was preemptively infiltrated with 0.5% Marcaine solution. The appendix was grasped. The mesoappendix was taken down with the Harmonic scalpel. The midportion of the appendix did appear mildly inflamed. No gangrenous changes were noted. There was no perforation. Once the mesoappendix had been completely divided, the appendiceal stump was doubly ligated with 0 PDS endo-loops. The appendix was then transected again using the Harmonic scalpel and placed in an Endopouch. The right lower quadrant was irrigated with several 100 mL of sterile saline solution. All fluid was aspirated. The base of the appendix was inspected and the stump appeared sealed. The Endopouch containing appendix was then removed through the 12 mm port removing the port at the same time. Under camera vision, the 5 mm right lower quadrant port was removed. The CO2 was allowed to evacuate into the operating room atmosphere. The 5 mm supraumbilical camera and port were removed. The patient was now again placed in a neutral position. Small bleeding sites were electrocoagulated. The suprapubic and supraumbilical incisions were closed in 2 layers approximating the subcutaneous tissue with 3-0 Polysorb and the skin with subcuticular 4-0 Monocryl. The left lower quadrant port was closed with subcuticular 4-0 Monocryl. All incisions were Steri- Stripped and dressed with sterile Tegaderm pads. Sponge, needle, and instrument counts were all correct. The patient tolerated the procedure well. Painter catheter was removed prior to emergence from anesthesia. Following emergence from anesthesia and extubation, the patient was taken to recovery room in stable condition. ILENE PATEL /[id number]
== END 2017-02-10 23:50 | disposition home or self-care (01) ==
LOC: MW.ED 09:42 → MW.SDS 15:07 → MW.MS 15:20 → MW.SDS 23:50
PROVIDERS: ATTEND Surgery
PROC: 0DTJ4ZZ Resection of Appendix, Percutaneous Endoscopic Approach (ICD-10-PCS; principal; 2017-02-10)
DX: K35.80 Unspecified acute appendicitis (principal); Z88.0 Allergy status to penicillin
CPT/HCPCS: 36415; 44970; 74177; 80053; 81001; 81025; 85025; 96361; 96374; 96375; 99285; A9270; J1885; J2250; J2405; J3010; J7040; J7120; Q9967; 00840; 88304; 99283; J0690; J2704

== ENCOUNTER 2020-03-01 09:39 | Inpatient (IN) | payer BC ==
[2020-03-01] MEDS ORDERED: Tranexamic Acid 1,000 MG in Sodium Chloride 0.9% 100 ML IV PRN (11:05)
[2020-03-01] MEDS ORDERED: Methylergonovine 0.2 MG/1 ML Amp IM PRN (11:05)
[2020-03-01] MEDS ORDERED: Sodium Chloride 0.9% 10 ML Syringe FLUSH PRN (11:05)
[2020-03-01] MEDS ORDERED: Nalbuphine 10 MG/1 ML Vial IVPUSH PRN (11:05)
[2020-03-01] MEDS ORDERED: Lidocaine 1% 50 ML MDV INJECT PRN (11:05)
[2020-03-01] MEDS ORDERED: Water For Irrigation,Sterile 1,000 ML Container IRR PRN (11:05)
[2020-03-01] MEDS ORDERED: Butorphanol 1 MG/ML SDV IVPUSH PRN (11:05)
[2020-03-01] MEDS ORDERED: Ondansetron 4 MG/2 ML SDV IVPUSH PRN (11:05)
[2020-03-01] MEDS ORDERED: Misoprostol 200 MCG Tab PO PRN (11:05)
[2020-03-01] MEDS ORDERED: Sodium Chloride 0.9% 2.5 ML Syringe FLUSH PRN (11:05)
[2020-03-01] MEDS ORDERED: Carboprost Tromethamine 250 MCG/1 ML Amp IM PRN (11:05)
[2020-03-01] MEDS ORDERED: Sodium Chloride 0.9% 10 ML SDV IV PRN (11:05)
[2020-03-01] MEDS ORDERED: Oxytocin/0.9 % Sodium Chloride 30 UNIT/500 ML BAG IV SCH ×2 (11:15→12:15)
[2020-03-01] MEDS ORDERED: Lactated Ringers 1,000 ML IV SCH (11:15)
--- NOTE | 2020-03-01 12:33 | PCM.LDHP ---
L&D History of Present Illness - General Date of Service: 03/01/20 Admit Problem/Dx: Patient Status Order with Admit Dx/Problem 03/01/20 10:11 Patient Status [ADT] Routine 03/01/20 11:05 Patient Status [ADT] Routine Admission Diagnosis/Problem Admission Diagnosis/Problem 03/01/20 12:29 presenting at 39 weeks (RAFA: 03/08/20) with report of "big gush of fluid" at approximately 0830 today; reports clear fluid without odor; contractions q4- 6 minutes. SVE 5-6 cm/75%/-3, soft midposition per nurse report. O+, rubella immune, GBS negative Source of Information: Patient, Significant Other (Significant other serving as clinical nursing manager) History Limitations: Reports: No Limitations - History of Present Illness Associated Symptoms: Reports: vaginal fluid, moderate amount - Related Data Allergies/Adverse Reactions: Allergies Allergy/AdvReac Type Severity Reaction Status Date / Time Penicillins Allergy Other Verified 03/01/20 10:09 Home Medications: Home Meds Vits #93/Iron Fum/FA [ Formula Tablet] 1 each PO DAILY [History] Past Medical History - Past Health History Medical/Surgical History: Denies Medical/Surgical History HEENT History: Reports: None Cardiovascular History: Reports: None Respiratory History: Reports: None Gastrointestinal History: Reports: None Genitourinary History: Reports: None 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: Musculoskeletal History: Reports: None Neurological History: Reports: None Psychiatric History: Reports: None Endocrine/Metabolic History: Reports: None Hematologic History: Reports: None Immunologic History: Reports: None Oncologic (Cancer) History: Reports: None Dermatologic History: Reports: None - Infectious Disease History Infectious Disease History: Reports: None - Past Surgical History Head Surgeries/Procedures: Reports: None HEENT Surgical History: Reports: None Cardiovascular Surgical History: Reports: None Respiratory Surgical History: Reports: None GI Surgical History: Reports: None Female Surgical History: Reports: None Endocrine Surgical History: Reports: None Neurological Surgical History: Reports: None Musculoskeletal Surgical History: Reports: None Oncologic Surgical History: Reports: None Dermatological Surgical History: Reports: None Social & Family History - Family History Family Medical History: Noncontributory Endocrine/Metabolic: Reports: Diabetes, type II - Tobacco Use Smoking Status *Q: Never Smoker Second Hand Smoke Exposure: No - Caffeine Use Caffeine Use: Reports: None - Recreational Drug Use Recreational Drug Use: No Drug Use in Last 12 Months: No H&P Review of Systems - Review of Systems: Review Of Systems: See Below General: Reports: No Symptoms HEENT: Reports: No Symptoms Pulmonary: Reports: No Symptoms Cardiovascular: Reports: No Symptoms Gastrointestinal: Reports: No Symptoms Genitourinary: Reports: No Symptoms Musculoskeletal: Reports: No Symptoms Skin: Reports: No Symptoms Psychiatric: Reports: No Symptoms Neurological: Reports: No Symptoms Hematologic/Lymphatic: Reports: No Symptoms Immunologic: Reports: No Symptoms L&D Exam - Exam Exam: See Below - Vital Signs Weight: 168 lb - OB Specific Contraction Intensity: Mild to Moderate Movement: Active Heart Tones: Present Heart Rate (FHR) Variability: Moderate (6-25 bmp) Presentation: Vertex - Jacob Score Jacob Score Cervix Position: Midposition Jacob Score Consistency: Soft Jacob Score Effacement: 51-70% Jacob Score Dilation: > 5 cm Jacob Score Infant's Station: -3 Jacob Score Total: 8 - Exam General: Alert, Oriented, Cooperative Lungs: Normal Respiratory Effort Cardiovascular: Regular Rate, Regular Rhythm GI/Abdominal Exam: Soft, Non-Tender Rectal Exam: Deferred Genitourinary: Deferred Back Exam: Normal Inspection, Full Range of Motion Extremities: Normal Inspection, Normal Range of Motion, Non-Tender, Normal Capillary Refill Skin: Warm, Dry, Intact Neurological: Normal Gait, Normal Speech, Normal Tone, Sensation Intact Psychiatric: Alert, Normal Affect, Normal Mood - Patient Data Lab Results Last 24 hrs: Laboratory Results - last 24 hr 03/01/20 03/01/20 Range/Units 10:29 11:23 WBC 12.31 H (4.0-11.0) K/uL RBC 4.30 (4.30-5.90) M/uL Hgb 12.8 (12.0-16.0) g/dL Hct 38.9 (36.0-46.0) % MCV 90.5 (80.0-98.0) fL MCH 29.8 (27.0-32.0) pg MCHC 32.9 (31.0-37.0) g/dL RDW Std Deviation 46.5 (28.0-62.0) fl RDW Coeff of Del 14 (11.0-15.0) % Plt Count 189 (150-400) K/uL MPV 13.10 H (7.40-12.00) fL Nucleated RBC % 0.0 /100WBC Nucleated RBCs # 0 K/uL Membrane Rupture NEGATIVE Result Diagrams: 03/01/20 11:23 - Problem List (1) Supervision of normal IUP (intrauterine ) in multigravida SNOMED Code(s): 636430276, 845902618, 750807334 ICD Code: Z34.80 - ENCOUNTER FOR SUPRVSN OF NORMAL , UNSP TRIMESTER Status: Acute Priority: High Current Visit: Yes Qualifiers: Trimester: third trimester Qualified Code(s): Z34.83 - Encounter for supervision of other normal , third trimester Problem List Initiated/Reviewed/Updated: Yes Orders Last 24hrs: Active Orders 24 hr Category Date Time Status Patient Status [ADT] Routine ADT 03/01/20 10:11 Active Patient Status [ADT] Routine ADT 03/01/20 11:05 Active Communication Order [RC] ASDIRECTED Care 03/01/20 12:06 Active Communication Order [RC] ASDIRECTED Care 03/01/20 12:06 Active Heart Tones [RC] INTERMITTENT Care 03/01/20 11:05 Active Non Stress Test [RC] PER UNIT ROUTINE Care 03/01/20 10:11 Active Non Stress Test [RC] PER UNIT ROUTINE Care 03/01/20 11:05 Active May Shower [RC] ASDIRECTED Care 03/01/20 11:05 Active Notify Provider [RC] PRN Care 03/01/20 11:05 Active Notify Provider [RC] PRN Care 03/01/20 12:06 Active Oxygen Therapy [RC] ASDIRECTED Care 03/01/20 12:06 Active Up ad Sara [RC] ASDIRECTED Care 03/01/20 10:11 Active Up ad Sara [RC] ASDIRECTED Care 03/01/20 11:05 Active Vaginal Exam [RC] Click to Edit Care 03/01/20 10:11 Active Vaginal Exam [RC] PRN Care 03/01/20 11:05 Active Vaginal Exam [RC] PRN Care 03/01/20 12:06 Active Vital Signs [RC] PER UNIT ROUTINE Care 03/01/20 10:11 Active Vital Signs [RC] PER UNIT ROUTINE Care 03/01/20 11:05 Active Vital Signs [RC] PER UNIT ROUTINE Care 03/01/20 12:06 Active Clear Liquid Diet [DIET] Diet 03/01/20 Breakfast Active RPR (SYPHILIS SERO) W/ RFLX [REF] Routine Lab 03/01/20 11:23 Received TYPE AND SCREEN [BBK] Routine Lab 03/01/20 11:23 Received Butorphanol [Stadol] Med 03/01/20 11:05 Active 1 mg IVPUSH Q1H PRN Carboprost Tromethamine [Hemabate DS] Med 03/01/20 11:05 Active 250 mcg IM ASDIRECTED PRN Lactated Ringers [Ringers, Lactated] 1,000 ml Med 03/01/20 11:15 Active IV ASDIRECTED Lidocaine 1% [Xylocaine 1%] Med 03/01/20 11:05 Active 50 ml INJECT ONETIME PRN Methylergonovine [Methergine] Med 03/01/20 11:05 Active 0.2 mg IM ASDIRECTED PRN Nalbuphine [Nubain] Med 03/01/20 11:05 Active 10 mg IVPUSH Q1H PRN Ondansetron [Zofran] Med 03/01/20 11:05 Active 4 mg IVPUSH Q4H PRN Oxytocin/0.9 % Sodium Chloride [Oxytocin 30 Unit/500 ML Med 03/01/20 11:15 Active -NS] 30 unit in 500 ml IV TITRATE Oxytocin/0.9 % Sodium Chloride [Oxytocin 30 Unit/500 ML Med 03/01/20 12:15 Active -NS] 30 unit in 500 ml IV TITRATE Sodium Chloride 0.9% [Normal Saline] Med 03/01/20 11:05 Active 10 ml IV ASDIRECTED PRN Sodium Chloride 0.9% [Saline Flush] Med 03/01/20 11:05 Active 10 ml FLUSH ASDIRECTED PRN Sodium Chloride 0.9% [Saline Flush] Med 03/01/20 11:05 Active 2.5 ml FLUSH ASDIRECTED PRN Tranexamic Acid [Cyklokapron] 1,000 mg Med 03/01/20 11:05 Active Sodium Chloride 0.9% [Normal Saline] 100 ml IV ONETIME Water For Irrigation,Sterile [Sterile Water for Med 03/01/20 11:05 Active Irrigation] 1,000 ml IRR ASDIRECTED PRN miSOPROStoL [Cytotec] Med 03/01/20 11:05 Active 200 mcg PO ONETIME PRN Scalp Electrode [WOMSER] Per Unit Routine Oth 03/01/20 11:05 Ordered Peripheral IV Insertion Adult [OM.PC] Routine Oth 03/01/20 11:05 Ordered Resuscitation Status Routine Resus Stat 03/01/20 10:11 Ordered Medication Orders Butorphanol Tartrate (Stadol) 1 mg IVPUSH Q1H PRN PRN Reason: Pain Carboprost Tromethamine (Hemabate Ds) 250 mcg IM ASDIRECTED PRN PRN Reason: Post Hemorrhage Tranexamic Acid 1,000 mg/ (Sodium Chloride) 110 mls @ 660 mls/hr IV ONETIME PRN PRN Reason: Bleeding Lactated Ringer's (Ringers, Lactated) 1,000 mls @ 150 mls/hr IV ASDIRECTED KEV Oxytocin/Sodium Chloride (Oxytocin 30 Unit/500 Ml-Ns) 30 unit in 500 mls @ 500 mls/hr IV TITRATE KEV Oxytocin/Sodium Chloride (Oxytocin 30 Unit/500 Ml-Ns) 30 unit in 500 mls @ 2 mls/hr IV TITRATE KEV; Protocol Lidocaine HCl (Xylocaine 1%) 50 ml INJECT ONETIME PRN PRN Reason: Laceration repair Methylergonovine Maleate (Methergine) 0.2 mg IM ASDIRECTED PRN PRN Reason: Post Hemorrhage Misoprostol (Cytotec) 200 mcg PO ONETIME PRN PRN Reason: Post Hemorrhage Nalbuphine HCl (Nubain) 10 mg IVPUSH Q1H PRN PRN Reason: Pain (severe 7-10) Ondansetron HCl (Zofran) 4 mg IVPUSH Q4H PRN PRN Reason: Nausea/Vomiting Sodium Chloride (Saline Flush) 10 ml FLUSH ASDIRECTED PRN PRN Reason: Keep Vein Open Sodium Chloride (Saline Flush) 2.5 ml FLUSH ASDIRECTED PRN PRN Reason: Keep Vein Open Sodium Chloride (Normal Saline) 10 ml IV ASDIRECTED PRN PRN Reason: IV Use Sterile Water (Sterile Water For Irrigation) 1,000 ml IRR ASDIRECTED PRN PRN Reason: delivery Assessment/Plan Comment:: Admit A: presenting at 39 weeks (RAFA: 03/08/20); contractions q4-6 minutes. SVE 5-6 cm/75%/-3, soft midposition per nurse report. O+, rubella immune, GBS negative P: Admit; pitocin PRN, epidural PRN; anticipate ; Dr. Suárez updated.
[2020-03-01] MEDS ORDERED: Acetaminophen 500 MG Tab PO PRN (19:40)
[2020-03-01] MEDS ORDERED: Benzocaine/Menthol 20%-0.5% Spray 78 GM Cannister TOP PRN (19:40)
[2020-03-01] MEDS ORDERED: Docusate Sodium 100 MG Cap PO PRN (19:40)
[2020-03-01] MEDS ORDERED: Bisacodyl 10 MG Supp RECTAL PRN (19:40)
[2020-03-01] MEDS ORDERED: Lanolin 100% Cream 7 GM Tube TOP PRN (19:40)
[2020-03-01] MEDS ORDERED: Ibuprofen 400 MG Tab PO PRN (19:40)
[2020-03-01] MEDS ORDERED: Witch Hazel Medicated Pads 40/Jar TOP PRN (19:40)
[2020-03-01] MEDS ORDERED: oxyCODONE 5 MG Tab PO PRN (19:40)
--- NOTE | 2020-03-01 19:46 | PCM.DEL ---
L & D Note - General Info Date of Service: 03/01/20 Mother's Due Date: 03/08/20 - Delivery Note Labor: Spontaneous, Augmented by Oxytocin Delivery Outcome: Livebirth Infant Delivery Method: Spontaneous Vaginal Delivery-Twins Delivery Mode: Vacuum Extraction Presentation: Vertex Nuchal Cord: None Anesthesia Type: None Episiotomy Type: None Laceration: None Placenta: Intact, Spontaneous Cord: 3 Vessels Estimated Blood Loss: 250 : Suctioned, Bulb Syringe, Stimulated Second Stage Interventions: Reports: Second Nurse Assessed Progress of Descent, Second Nurse Reviewed Contraction Pattern, Second Nurse Reviewed Heart Tones, Encouragement Given Delivery Comments (Free Text/Narrative):: Vacuum-assisted (by Dr. Suárez) vaginal delivery viable infant female; head delivered, shoulders and body followed after; baby to mom's abdomen skin-to- skin for assessment, spontaneous cry; cord doubly clamped and cut after 2 minutes; baby to warmer for continued assessment; weight and APGARs pending; placenta delivered grossly intact, 3VC, EBL 250 mL; perineum intact; mom and baby left in stable condition with nurse at bedside for assessment - General Info Date of Service: 03/01/20 Admission Dx/Problem (Free Text): Patient Status Order with Admit Dx/Problem 03/01/20 10:11 Patient Status [ADT] Routine 03/01/20 11:05 Patient Status [ADT] Routine Admission Diagnosis/Problem Admission Diagnosis/Problem 03/01/20 12:29 presenting at 39 weeks (RAFA: 03/08/20) with report of "big gush of fluid" at approximately 0830 today; reports clear fluid without odor; contractions q4- 6 minutes. SVE 5-6 cm/75%/-3, soft midposition per nurse report. O+, rubella immune, GBS negative Functional Status: Reports: Pain Controlled - Review of Systems General: Reports: No Symptoms HEENT: Reports: No Symptoms Pulmonary: Reports: No Symptoms Cardiovascular: Reports: No Symptoms Gastrointestinal: Reports: No Symptoms Genitourinary: Reports: No Symptoms Musculoskeletal: Reports: No Symptoms Skin: Reports: No Symptoms Neurological: Reports: No Symptoms Psychiatric: Reports: No Symptoms - Patient Data Weight - Most Recent: 168 lb Lab Results Last 24 Hours: Laboratory Results - last 24 hr 05/22/20 05/22/20 05/22/20 Range/Units 10:29 11:23 11:23 WBC 12.31 H (4.0-11.0) K/uL RBC 4.30 (4.30-5.90) M/uL Hgb 12.8 (12.0-16.0) g/dL Hct 38.9 (36.0-46.0) % MCV 90.5 (80.0-98.0) fL MCH 29.8 (27.0-32.0) pg MCHC 32.9 (31.0-37.0) g/dL RDW Std Deviation 46.5 (28.0-62.0) fl RDW Coeff of Del 14 (11.0-15.0) % Plt Count 189 (150-400) K/uL MPV 13.10 H (7.40-12.00) fL Nucleated RBC % 0.0 /100WBC Nucleated RBCs # 0 K/uL Membrane Rupture NEGATIVE Blood Type O POSITIVE Antibody Screen NEGATIVE Med Orders - Current: Current Medications Acetaminophen (Tylenol Extra Strength) 500 mg PO Q4H PRN PRN Reason: Pain Acetaminophen (Tylenol Extra Strength) 1,000 mg PO Q4H PRN PRN Reason: Pain Benzocaine/Menthol (Dermoplast Pain Relief 20%-0.5% [place]) 78 gm TOP ASDIRECTED PRN PRN Reason: Perineal Comfort Measure Bisacodyl (Dulcolax) 10 mg RECTAL ONETIME PRN PRN Reason: Constipation Docusate Sodium (Colace) 100 mg PO BID PRN PRN Reason: Constipation Emollient Ointment (Lansinoh Hpa) 0 gm TOP ASDIRECTED PRN PRN Reason: Sore Nipples Ibuprofen (Motrin) 400 mg PO Q4H PRN PRN Reason: Pain Ibuprofen (Motrin) 800 mg PO Q6H PRN PRN Reason: Pain Oxycodone HCl (Oxycodone) 5 mg PO Q2H PRN PRN Reason: Pain Witch Magdalena (Tucks) 1 pad TOP ASDIRECTED PRN PRN Reason: comfort care Discontinued Medications Butorphanol Tartrate (Stadol) 1 mg IVPUSH Q1H PRN PRN Reason: Pain Carboprost Tromethamine (Hemabate Ds) 250 mcg IM ASDIRECTED PRN PRN Reason: Post Hemorrhage Tranexamic Acid 1,000 mg/ (Sodium Chloride) 110 mls @ 660 mls/hr IV ONETIME PRN PRN Reason: Bleeding Lactated Ringer's (Ringers, Lactated) 1,000 mls @ 150 mls/hr IV ASDIRECTED KEV Last Admin: 03/01/20 12:33 Dose: 150 mls/hr Oxytocin/Sodium Chloride (Oxytocin 30 Unit/500 Ml-Ns) 30 unit in 500 mls @ 500 mls/hr IV TITRATE KEV Oxytocin/Sodium Chloride (Oxytocin 30 Unit/500 Ml-Ns) 30 unit in 500 mls @ 2 mls/hr IV TITRATE KEV; Protocol Last Titration: 03/01/20 15:42 Dose: 12 munits/min, 12 mls/hr Lidocaine HCl (Xylocaine 1%) 50 ml INJECT ONETIME PRN PRN Reason: Laceration repair Methylergonovine Maleate (Methergine) 0.2 mg IM ASDIRECTED PRN PRN Reason: Post Hemorrhage Misoprostol (Cytotec) 200 mcg PO ONETIME PRN PRN Reason: Post Hemorrhage Nalbuphine HCl (Nubain) 10 mg IVPUSH Q1H PRN PRN Reason: Pain (severe 7-10) Ondansetron HCl (Zofran) 4 mg IVPUSH Q4H PRN PRN Reason: Nausea/Vomiting Sodium Chloride (Saline Flush) 10 ml FLUSH ASDIRECTED PRN PRN Reason: Keep Vein Open Sodium Chloride (Saline Flush) 2.5 ml FLUSH ASDIRECTED PRN PRN Reason: Keep Vein Open Sodium Chloride (Normal Saline) 10 ml IV ASDIRECTED PRN PRN Reason: IV Use Sterile Water (Sterile Water For Irrigation) 1,000 ml IRR ASDIRECTED PRN PRN Reason: delivery - Exam General: Alert, Oriented, Cooperative, No Acute Distress Lungs: Normal Respiratory Effort Cardiovascular: Regular Rate, Regular Rhythm GI/Abdominal Exam: Soft, Non-Tender (Female) Exam: Normal External Exam Back Exam: Normal Inspection, Full Range of Motion Extremities: Normal Inspection, Normal Range of Motion, Non-Tender, Normal Capillary Refill Skin: Warm, Dry, Intact Neurological: No New Focal Deficit, Normal Speech, Normal Tone, Sensation Intact Psy/Mental Status: Alert, Normal Affect, Normal Mood - Problem List & Annotations (1) Supervision of normal IUP (intrauterine ) in multigravida SNOMED Code(s): 460630923, 980249319, 861513326 Code(s): Z34.80 - ENCOUNTER FOR SUPRVSN OF NORMAL , UNSP TRIMESTER Status: Acute Priority: High Current Visit: Yes Qualifiers: Trimester: third trimester Qualified Code(s): Z34.83 - Encounter for supervision of other normal , third trimester (2) Vacuum-assisted vaginal delivery SNOMED Code(s): 32389449633478012 Code(s): Z37.9 - OUTCOME OF DELIVERY, UNSPECIFIED Status: Acute Priority : High Current Visit: Yes - Problem List Review Problem List Initiated/Reviewed/Updated: Yes - My Orders Last 24 Hours: My Active Orders 03/01/20 11:05 Heart Tones [RC] INTERMITTENT Vital Signs [RC] PER UNIT ROUTINE 03/01/20 11:23 RPR (SYPHILIS SERO) W/ RFLX [REF] Routine 03/01/20 12:06 Oxygen Therapy [RC] ASDIRECTED Vital Signs [RC] PER UNIT ROUTINE 03/01/20 19:40 Patient Status [ADT] Routine May Shower [RC] ASDIRECTED Up ad Sara [RC] ASDIRECTED Vital Signs [RC] PER UNIT ROUTINE Acetaminophen [Tylenol Extra Strength] 1,000 mg PO Q4H PRN Acetaminophen [Tylenol Extra Strength] 500 mg PO Q4H PRN Benzocaine/Menthol [Dermoplast Pain Relief 20%-0.5% [place]] 78 gm TOP ASDIRECTED PRN Docusate Sodium [Colace] 100 mg PO BID PRN Ibuprofen [Motrin] 400 mg PO Q4H PRN Ibuprofen [Motrin] 800 mg PO Q6H PRN Lanolin [Lansinoh HPA] See Dose Instructions TOP ASDIRECTED PRN bisacodyL [Dulcolax] 10 mg RECTAL ONETIME PRN oxyCODONE 5 mg PO Q2H PRN witch Magdalena [Tucks] 1 pad TOP ASDIRECTED PRN Assess Lochia [WOMSER] Per Unit Routine Assess Uterine Involution [WOMSER] Per Unit Routine Peripheral IV Discontinue [OM.PC] Routine Resuscitation Status Routine 03/02/20 05:11 HEMOGLOBIN/HEMATOCRIT,HH [HEME] Timed - Plan Plan:: Admit A: presenting at 39 weeks (RAFA: 03/08/20); contractions q4-6 minutes. SVE 5-6 cm/75%/-3, soft midposition per nurse report. O+, rubella immune, GBS negative P: Admit; pitocin PRN, epidural PRN; anticipate ; Dr. Suárez updated. Delivery A: Vacuum-assisted (by Dr. Suárez) vaginal delivery viable female; weight and APGARs pending; placenta delivered grossly intact, 3VC, EBL 250 mL; perineum intact; pitocin to IVF; mom and baby left in stable condition with nurse at bedside for assessment P: Routine plan of care; Dr. Suárez updated.
[2020-03-01] MEDS: Ibuprofen 800 MG Tab PO PRN (20:04)
[2020-03-01] MEDS: Acetaminophen 500 MG Tab PO PRN (20:04)
[2020-03-02] MEDS: Ibuprofen 800 MG Tab PO PRN ×3 (02:53→18:03)
[2020-03-02] MEDS: Acetaminophen 500 MG Tab PO PRN (02:53)
--- NOTE | 2020-03-02 08:54 | PCM.DCSUM1 ---
Discharge Summary - Hospital Course Free Text/Narrative:: Discharge home with baby. Follow up in the clinic in 6 weeks for routine visit. Diagnosis: Stroke: No Modified Trevor Scale: No Symptoms at All Modified [place] Scale Score: 0 - Discharge Data Discharge Date: 03/02/20 Discharge Disposition: Home, Self-Care 01 Condition: Good - Referral to Home Health Primary Care Physician: PCP None - Discharge Diagnosis/Problem(s) (1) Supervision of normal IUP (intrauterine ) in multigravida SNOMED Code(s): 962932194, 577164252, 621933124 ICD Code: Z34.80 - ENCOUNTER FOR SUPRVSN OF NORMAL , UNSP TRIMESTER Status: Acute Priority: High Current Visit: Yes Qualifiers: Trimester: third trimester Qualified Code(s): Z34.83 - Encounter for supervision of other normal , third trimester (2) Vacuum-assisted vaginal delivery SNOMED Code(s): 86213143776487563 ICD Code: Z37.9 - OUTCOME OF DELIVERY, UNSPECIFIED Status: Acute Priority : High Current Visit: Yes - Patient Instructions Diet: Regular Diet as Tolerated, Drink 8-10+ Glasses/Day Activity: As Tolerated, No Strenuous Activities, Rest and Relax Today Driving: May Drive Today Showering/Bathing: May Shower Notify Provider of: Fever, Increased Pain, Swelling and Redness, Drainage, Nausea and/or Vomiting - Discharge Plan *PRESCRIPTION DRUG MONITORING PROGRAM REVIEWED*: Not Applicable *COPY OF PRESCRIPTION DRUG MONITORING REPORT IN PATIENT ANKITA: Not Applicable Prescriptions/Med Rec: Ibuprofen [Motrin] 800 mg PO Q6H PRN #90 tablet PRN Reason: Pain Home Medications: Home Meds Vits #93/Iron Fum/FA [ Formula Tablet] 1 each PO DAILY [History] Ibuprofen [Motrin] 800 mg PO Q6H PRN #90 tablet 03/02/20 [Rx] Oxygen Therapy Mode: Room Air - Discharge Summary/Plan Comment DC Time >30 min.: Yes - General Info Date of Service: 03/02/20 Admission Dx/Problem (Free Text: Patient Status Order with Admit Dx/Problem 03/01/20 10:11 Patient Status [ADT] Routine 03/01/20 11:05 Patient Status [ADT] Routine Admission Diagnosis/Problem Admission Diagnosis/Problem 03/01/20 12:29 presenting at 39 weeks (RAFA: 03/08/20) with report of "big gush of fluid" at approximately 0830 today; reports clear fluid without odor; contractions q4- 6 minutes. SVE 5-6 cm/75%/-3, soft midposition per nurse report. O+, rubella immune, GBS negative Functional Status: Reports: Pain Controlled, Tolerating Diet, Ambulating, Urinating - Review of Systems General: Reports: No Symptoms HEENT: Reports: No Symptoms Pulmonary: Reports: No Symptoms Cardiovascular: Reports: No Symptoms Gastrointestinal: Reports: No Symptoms Genitourinary: Reports: No Symptoms Musculoskeletal: Reports: No Symptoms Skin: Reports: No Symptoms Neurological: Reports: No Symptoms Psychiatric: Reports: No Symptoms - Patient Data Vitals - Most Recent: Last Vital Signs Temp 97.7 F 03/02/20 07:00 Pulse 85 03/02/20 07:00 Resp 16 03/02/20 07:00 BP 101/57 L 03/02/20 07:00 Pulse Ox 96 03/02/20 07:00 Weight - Most Recent: 168 lb I&O - Last 24 hours: Intake & Output 03/01/20 03/02/20 03/02/20 22:59 06:59 14:59 Intake Total 400 Balance 400 Lab Results - Last 24 hrs: Laboratory Results - last 24 hr 03/01/20 03/01/20 03/01/20 Range/Units 10:29 11:23 11:23 WBC 12.31 H (4.0-11.0) K/uL RBC 4.30 (4.30-5.90) M/uL Hgb 12.8 (12.0-16.0) g/dL Hct 38.9 (36.0-46.0) % MCV 90.5 (80.0-98.0) fL MCH 29.8 (27.0-32.0) pg MCHC 32.9 (31.0-37.0) g/dL RDW Std Deviation 46.5 (28.0-62.0) fl RDW Coeff of Del 14 (11.0-15.0) % Plt Count 189 (150-400) K/uL MPV 13.10 H (7.40-12.00) fL Nucleated RBC % 0.0 /100WBC Nucleated RBCs # 0 K/uL Membrane Rupture NEGATIVE Blood Type O POSITIVE Antibody Screen NEGATIVE 03/02/20 Range/Units 06:10 WBC (4.0-11.0) K/uL RBC (4.30-5.90) M/uL Hgb 11.3 L (12.0-16.0) g/dL Hct 35.3 L (36.0-46.0) % MCV (80.0-98.0) fL MCH (27.0-32.0) pg MCHC (31.0-37.0) g/dL RDW Std Deviation (28.0-62.0) fl RDW Coeff of Del (11.0-15.0) % Plt Count (150-400) K/uL MPV (7.40-12.00) fL Nucleated RBC % /100WBC Nucleated RBCs # K/uL Membrane Rupture Blood Type Antibody Screen Med Orders - Current: Current Medications Acetaminophen (Tylenol Extra Strength) 500 mg PO Q4H PRN PRN Reason: Pain Acetaminophen (Tylenol Extra Strength) 1,000 mg PO Q4H PRN PRN Reason: Pain Last Admin: 03/02/20 02:53 Dose: 1,000 mg Benzocaine/Menthol (Dermoplast Pain Relief 20%-0.5% [place]) 78 gm TOP ASDIRECTED PRN PRN Reason: Perineal Comfort Measure Bisacodyl (Dulcolax) 10 mg RECTAL ONETIME PRN PRN Reason: Constipation Docusate Sodium (Colace) 100 mg PO BID PRN PRN Reason: Constipation Emollient Ointment (Lansinoh Hpa) 0 gm TOP ASDIRECTED PRN PRN Reason: Sore Nipples Ibuprofen (Motrin) 400 mg PO Q4H PRN PRN Reason: Pain Ibuprofen (Motrin) 800 mg PO Q6H PRN PRN Reason: Pain Last Admin: 03/02/20 02:53 Dose: 800 mg Oxycodone HCl (Oxycodone) 5 mg PO Q2H PRN PRN Reason: Pain Witch Magdalena (Tucks) 1 pad TOP ASDIRECTED PRN PRN Reason: comfort care Discontinued Medications Butorphanol Tartrate (Stadol) 1 mg IVPUSH Q1H PRN PRN Reason: Pain Carboprost Tromethamine (Hemabate Ds) 250 mcg IM ASDIRECTED PRN PRN Reason: Post Hemorrhage Tranexamic Acid 1,000 mg/ (Sodium Chloride) 110 mls @ 660 mls/hr IV ONETIME PRN PRN Reason: Bleeding Lactated Ringer's (Ringers, Lactated) 1,000 mls @ 150 mls/hr IV ASDIRECTED KEV Last Admin: 03/01/20 12:33 Dose: 150 mls/hr Oxytocin/Sodium Chloride (Oxytocin 30 Unit/500 Ml-Ns) 30 unit in 500 mls @ 500 mls/hr IV TITRATE KEV Oxytocin/Sodium Chloride (Oxytocin 30 Unit/500 Ml-Ns) 30 unit in 500 mls @ 2 mls/hr IV TITRATE KEV; Protocol Last Titration: 03/01/20 19:14 Dose: 500 munits/min, 500 mls/hr Lidocaine HCl (Xylocaine 1%) 50 ml INJECT ONETIME PRN PRN Reason: Laceration repair Methylergonovine Maleate (Methergine) 0.2 mg IM ASDIRECTED PRN PRN Reason: Post Hemorrhage Misoprostol (Cytotec) 200 mcg PO ONETIME PRN PRN Reason: Post Hemorrhage Nalbuphine HCl (Nubain) 10 mg IVPUSH Q1H PRN PRN Reason: Pain (severe 7-10) Ondansetron HCl (Zofran) 4 mg IVPUSH Q4H PRN PRN Reason: Nausea/Vomiting Sodium Chloride (Saline Flush) 10 ml FLUSH ASDIRECTED PRN PRN Reason: Keep Vein Open Sodium Chloride (Saline Flush) 2.5 ml FLUSH ASDIRECTED PRN PRN Reason: Keep Vein Open Sodium Chloride (Normal Saline) 10 ml IV ASDIRECTED PRN PRN Reason: IV Use Sterile Water (Sterile Water For Irrigation) 1,000 ml IRR ASDIRECTED PRN PRN Reason: delivery - Exam General: Reports: Alert, Oriented, Cooperative, No Acute Distress Lungs: Reports: Normal Respiratory Effort Cardiovascular: Reports: Regular Rate, Regular Rhythm GI/Abdominal Exam: Soft, Non-Tender (Female) Exam: Deferred Rectal (Female) Exam: Deferred Back Exam: Reports: Normal Inspection, Full Range of Motion Extremities: Normal Inspection, Normal Range of Motion, Non-Tender, Normal Capillary Refill Skin: Reports: Warm, Dry, Intact Neurological: Reports: No New Focal Deficit, Normal Speech, Normal Tone, Sensation Intact Psy/Mental Status: Reports: Alert, Normal Affect, Normal Mood
[2020-03-03 07:50] VITALS: BP 107/69; PULSE 80
--- NOTE | 2020-03-03 08:26 | PCM.DCSUM1 ---
Discharge Summary - Hospital Course Free Text/Narrative:: Discharge home. Follow up in the clinic in 6 weeks for routine visit. Diagnosis: Stroke: No Modified [place] Scale: No Symptoms at All Modified Trevor Scale Score: 0 - Discharge Data Discharge Date: 03/03/20 Discharge Disposition: Home, Self-Care 01 Condition: Good - Referral to Home Health Primary Care Physician: PCP None - Discharge Diagnosis/Problem(s) (1) Supervision of normal IUP (intrauterine ) in multigravida SNOMED Code(s): 500392387, 075578446, 599162813 ICD Code: Z34.80 - ENCOUNTER FOR SUPRVSN OF NORMAL , UNSP TRIMESTER Status: Acute Priority: High Current Visit: Yes Qualifiers: Trimester: third trimester Qualified Code(s): Z34.83 - Encounter for supervision of other normal , third trimester (2) Vacuum-assisted vaginal delivery SNOMED Code(s): 99675653234522335 ICD Code: Z37.9 - OUTCOME OF DELIVERY, UNSPECIFIED Status: Acute Priority : High Current Visit: Yes - Patient Instructions Diet: Regular Diet as Tolerated, Drink 8-10+ Glasses/Day Activity: As Tolerated, No Strenuous Activities, Rest and Relax Today Driving: May Drive Today Showering/Bathing: May Shower Notify Provider of: Fever, Increased Pain, Swelling and Redness, Drainage, Nausea and/or Vomiting - Discharge Plan *PRESCRIPTION DRUG MONITORING PROGRAM REVIEWED*: Not Applicable *COPY OF PRESCRIPTION DRUG MONITORING REPORT IN PATIENT ANKITA: Not Applicable Prescriptions/Med Rec: Ibuprofen [Motrin] 800 mg PO Q6H PRN #90 tablet PRN Reason: Pain Home Medications: Home Meds Vits #93/Iron Fum/FA [ Formula Tablet] 1 each PO DAILY [History] Ibuprofen [Motrin] 800 mg PO Q6H PRN #90 tablet 03/02/20 [Rx] Oxygen Therapy Mode: Room Air Patient Handouts: Care After Vaginal Delivery - Discharge Summary/Plan Comment DC Time >30 min.: Yes - Patient Data Vitals - Most Recent: Last Vital Signs Temp 98.0 F 03/03/20 07:49 Pulse 80 03/03/20 07:49 Resp 16 03/03/20 07:49 BP 107/69 03/03/20 07:49 Pulse Ox 95 03/03/20 07:49 Weight - Most Recent: 168 lb Med Orders - Current: Current Medications Acetaminophen (Tylenol Extra Strength) 500 mg PO Q4H PRN PRN Reason: Pain Acetaminophen (Tylenol Extra Strength) 1,000 mg PO Q4H PRN PRN Reason: Pain Last Admin: 03/02/20 02:53 Dose: 1,000 mg Benzocaine/Menthol (Dermoplast Pain Relief 20%-0.5% [place]) 78 gm TOP ASDIRECTED PRN PRN Reason: Perineal Comfort Measure Bisacodyl (Dulcolax) 10 mg RECTAL ONETIME PRN PRN Reason: Constipation Docusate Sodium (Colace) 100 mg PO BID PRN PRN Reason: Constipation Last Admin: 03/02/20 09:13 Dose: 100 mg Emollient Ointment (Lansinoh Hpa) 0 gm TOP ASDIRECTED PRN PRN Reason: Sore Nipples Ibuprofen (Motrin) 400 mg PO Q4H PRN PRN Reason: Pain Ibuprofen (Motrin) 800 mg PO Q6H PRN PRN Reason: Pain Last Admin: 03/02/20 18:03 Dose: 800 mg Oxycodone HCl (Oxycodone) 5 mg PO Q2H PRN PRN Reason: Pain Witch Magdalena (Tucks) 1 pad TOP ASDIRECTED PRN PRN Reason: comfort care Discontinued Medications Butorphanol Tartrate (Stadol) 1 mg IVPUSH Q1H PRN PRN Reason: Pain Carboprost Tromethamine (Hemabate Ds) 250 mcg IM ASDIRECTED PRN PRN Reason: Post Hemorrhage Tranexamic Acid 1,000 mg/ (Sodium Chloride) 110 mls @ 660 mls/hr IV ONETIME PRN PRN Reason: Bleeding Lactated Ringer's (Ringers, Lactated) 1,000 mls @ 150 mls/hr IV ASDIRECTED KEV Last Admin: 03/01/20 12:33 Dose: 150 mls/hr Oxytocin/Sodium Chloride (Oxytocin 30 Unit/500 Ml-Ns) 30 unit in 500 mls @ 500 mls/hr IV TITRATE KEV Oxytocin/Sodium Chloride (Oxytocin 30 Unit/500 Ml-Ns) 30 unit in 500 mls @ 2 mls/hr IV TITRATE KEV; Protocol Last Titration: 03/01/20 19:14 Dose: 500 munits/min, 500 mls/hr Lidocaine HCl (Xylocaine 1%) 50 ml INJECT ONETIME PRN PRN Reason: Laceration repair Methylergonovine Maleate (Methergine) 0.2 mg IM ASDIRECTED PRN PRN Reason: Post Hemorrhage Misoprostol (Cytotec) 200 mcg PO ONETIME PRN PRN Reason: Post Hemorrhage Nalbuphine HCl (Nubain) 10 mg IVPUSH Q1H PRN PRN Reason: Pain (severe 7-10) Ondansetron HCl (Zofran) 4 mg IVPUSH Q4H PRN PRN Reason: Nausea/Vomiting Sodium Chloride (Saline Flush) 10 ml FLUSH ASDIRECTED PRN PRN Reason: Keep Vein Open Sodium Chloride (Saline Flush) 2.5 ml FLUSH ASDIRECTED PRN PRN Reason: Keep Vein Open Sodium Chloride (Normal Saline) 10 ml IV ASDIRECTED PRN PRN Reason: IV Use Sterile Water (Sterile Water For Irrigation) 1,000 ml IRR ASDIRECTED PRN PRN Reason: delivery
== END 2020-03-03 09:05 | disposition home or self-care (01) | DRG 560 ==
LOC: MW.OB 09:39 → MW.OBCHECK 09:39 → MW.OB 11:06 → OBSVTOIN 19:40 → MW.OB 23:39
PROVIDERS: ADMIT Obstetrics & Gynecology; ATTEND Obstetrics & Gynecology
PROC: 10D07Z6 Extraction of Products of Conception, Vacuum, Via Natural or Artificial Opening (ICD-10-PCS; principal; 2020-03-01)
DX: O80 Encounter for full-term uncomplicated delivery (principal); Z37.0 Single live birth; Z3A.39 39 weeks gestation of pregnancy; Z88.0 Allergy status to penicillin
CPT/HCPCS: 36415; 59025; 59409; 84112; 85014; 85018; 85027; 86592; 86593; 86850; 86900; 86901; A9270-GY; J2590; J7120

== ENCOUNTER 2021-08-07 06:36 | Day surgery (SDC) | payer BC ==
[2021-08-05 16:07] LABS: BLOOD UREA NITROGEN,BUN 19 mg/dL (7.0-18.0); CARBON DIOXIDE,CO2 26.7 mmol/L (21.0-32.0); CHLORIDE,CL 104 mmol/L (98-107); GLUCOSE RANDOM 88 mg/dL (74-106); POTASSIUM,K 5.1 mmol/L (3.5-5.1); SODIUM,NA 138 mmol/L (136-145)
[~2021-08-07 06:36] MED LIST: Sodium Chloride 0.9% 10 ML SDV IV PRN; Sodium Chloride 0.9% 10 ML Syringe FLUSH PRN; Sodium Chloride 0.9% 2.5 ML Syringe FLUSH PRN; ceFAZolin 2 GM in Premix Bag 1 BAG IV ONE
[2021-08-07] MEDS ORDERED: fentaNYL 250 MCG/5 ML SDV ONE (06:56)
[2021-08-07] MEDS ORDERED: Midazolam 1 MG/ML 2 ML SDV ONE ×2 (06:56→08:43)
[2021-08-07] MEDS ORDERED: Propofol 200 MG/20 ML SDV ONE (06:56)
[2021-08-07] MEDS ORDERED: ePHEDrine 50 MG/ML SDV ONE (06:58)
[2021-08-07] MEDS ORDERED: Dexamethasone 4 MG/ML 5 ML MDV ONE (06:58)
[2021-08-07] MEDS ORDERED: Glycopyrrolate 0.2 MG/ML SDV ONE (06:58)
[2021-08-07] MEDS ORDERED: Ondansetron 4 MG/2 ML SDV ONE (06:58)
[2021-08-07] MEDS ORDERED: Rocuronium Bromide 50 MG/5 ML Syringe ONE (06:58)
[2021-08-07] MEDS ORDERED: Lidocaine 2% 5 ML SDV ONE (06:58)
[2021-08-07] MEDS ORDERED: Ketorolac 30 MG/ML SDV ONE (06:58)
[2021-08-07] MEDS ORDERED: Lidocaine 2% with EPINEPHrine 1:200,000 20 ML SDV ONE (07:07)
--- NOTE | 2021-08-07 07:21 | PCM.PREANE ---
Preanesthetic Assessment - Procedure Proposed Procedure: Total Vaginal Hysterectomy, A&P Repair, Cysto - Anesthesia/Transfusion/Family Hx Anesthesia History: No Prior Anesthesia Family History of Anesthesia Reaction: No Transfusion History: No Prior Transfusion(s) - Review of Systems General: No Symptoms Pulmonary: No Symptoms Cardiovascular: No Symptoms Gastrointestinal: No Symptoms Neurological: No Symptoms Other: Reports: None - Physical Assessment NPO Status Date: 08/06/21 NPO Status Time: 21:00 Vital Signs: Last Vital Signs Temp 97.7 F 08/07/21 06:57 Pulse 72 08/07/21 06:57 Resp 15 08/07/21 06:57 BP 111/70 08/07/21 06:57 Pulse Ox 99 08/07/21 06:57 Height: 5 ft Weight: 58.967 kg ASA Class: 1 Mental Status: Alert & Oriented x3 Airway Class: Mallampati = 3 Dentition: Reports: Normal Dentition Thyro-Mental Finger Breadths: 3 Mouth Opening Finger Breadths: 2 ROM/Head Extension: Full Lungs: Clear to Auscultation, Normal Respiratory Effort Cardiovascular: Regular Rate, Regular Rhythm - Lab Values: Laboratory Last Values WBC 8.32 K/uL (4.0-11.0) 08/05/21 15:20 RBC 4.45 M/uL (4.30-5.90) 08/05/21 15:20 Hgb 13.2 g/dL (12.0-16.0) 08/05/21 15:20 Hct 39.7 % (36.0-46.0) 08/05/21 15:20 MCV 89.2 fL (80.0-98.0) 08/05/21 15:20 MCH 29.7 pg (27.0-32.0) 08/05/21 15:20 MCHC 33.2 g/dL (31.0-37.0) 08/05/21 15:20 RDW Std Deviation 44.3 fl (28.0-62.0) 08/05/21 15:20 RDW Coeff of Del 14 % (11.0-15.0) 08/05/21 15:20 Plt Count 324 K/uL (150-400) 08/05/21 15:20 MPV 11.50 fL (7.40-12.00) 08/05/21 15:20 Nucleated RBC % 0.0 /100WBC 08/05/21 15:20 Nucleated RBCs # 0 K/uL 08/05/21 15:20 Sodium 138 mmol/L (136-145) 08/05/21 15:20 Potassium 5.1 mmol/L (3.5-5.1) 08/05/21 15:20 Chloride 104 mmol/L (98-107) 08/05/21 15:20 Carbon Dioxide 26.7 mmol/L (21.0-32.0) 08/05/21 15:20 BUN 19 mg/dL (7.0-18.0) H 08/05/21 15:20 Creatinine 0.6 mg/dL (0.6-1.0) 08/05/21 15:20 Est Cr Clr Drug Dosing 92.21 mL/min 08/05/21 15:20 Estimated GFR (MDRD) > 60.0 ml/min 08/05/21 15:20 Glucose 88 mg/dL (74-106) 08/05/21 15:20 Calcium 9.4 mg/dL (8.5-10.1) 08/05/21 15:20 HCG, Qual NEGATIVE (NEG) 08/05/21 15:20 Blood Type O POSITIVE 08/05/21 17:05 Antibody Screen NEGATIVE 08/05/21 17:05 - Allergies Allergies/Adverse Reactions: Allergies Allergy/AdvReac Type Severity Reaction Status Date / Time Penicillins Allergy Difficulty Verified 08/01/21 15:38 Breathing - Acknowledgements Anesthesia Type Planned: General Anesthesia Pt an Appropriate Candidate for the Planned Anesthesia: Yes Alternatives and Risks of Anesthesia Discussed w Pt/Guardian: Yes Pt/Guardian Understands and Agrees with Anesthesia Plan: Yes PreAnesthesia Questionnaire - Past Health History Medical/Surgical History: Denies Medical/Surgical History HEENT History: Reports: Epistaxis Cardiovascular History: Reports: None Respiratory History: Reports: None Gastrointestinal History: Reports: None Genitourinary History: Reports: Other (See Below) Other Genitourinary History: uterine prolapse [employer] History: Reports: , Prolapsed Uterus Musculoskeletal History: Reports: None Neurological History: Reports: None Psychiatric History: Reports: None Endocrine/Metabolic History: Reports: None Hematologic History: Reports: None Immunologic History: Reports: None Oncologic (Cancer) History: Reports: None Dermatologic History: Reports: None - Infectious Disease History Infectious Disease History: Reports: None - Past Surgical History Head Surgeries/Procedures: Reports: None HEENT Surgical History: Reports: None Cardiovascular Surgical History: Reports: None Respiratory Surgical History: Reports: None GI Surgical History: Reports: None Female Surgical History: Reports: None Endocrine Surgical History: Reports: None Neurological Surgical History: Reports: None Musculoskeletal Surgical History: Reports: None Oncologic Surgical History: Reports: None Dermatological Surgical History: Reports: None - SUBSTANCE USE Tobacco Use Status *Q: Never Tobacco User Recreational Drug Use History: No - HOME MEDS Home Medications: Home Meds . [No Known Home Meds] 08/01/21 [History] - CURRENT (IN HOUSE) MEDS Current Meds: Current Medications Lactated Ringer's (Ringers, Lactated) 1,000 mls @ 125 mls/hr IV ASDIRECTED KEV Sodium Chloride (Sodium Chloride 0.9% 10 Ml Syringe) 10 ml FLUSH ASDIRECTED PRN PRN Reason: Keep Vein Open Sodium Chloride (Sodium Chloride 0.9% 2.5 Ml Syringe) 2.5 ml FLUSH ASDIRECTED PRN PRN Reason: Keep Vein Open Sodium Chloride (Sodium Chloride 0.9% 10 Ml Sdv) 10 ml IV ASDIRECTED PRN PRN Reason: IV Use Discontinued Medications Dexamethasone (Dexamethasone 4 Mg/Ml 5 Ml Mdv) Confirm Administered Dose 20 mg .ROUTE .STK-MED ONE Stop: 08/07/21 06:59 Ephedrine Sulfate (Ephedrine 50 Mg/Ml Sdv) Confirm Administered Dose 50 mg .ROUTE .STK-MED ONE Stop: 08/07/21 06:59 Fentanyl (Fentanyl 250 Mcg/5 Ml Sdv) Confirm Administered Dose 250 mcg .ROUTE .STK-MED ONE Stop: 08/07/21 06:57 Glycopyrrolate (Glycopyrrolate 0.2 Mg/Ml Sdv) Confirm Administered Dose 0.2 mg .ROUTE .STK-MED ONE Stop: 08/07/21 06:59 Cefazolin Sodium/Dextrose 2 gm (/ Premix) 50 mls @ 100 mls/hr IV ONETIME ONE Stop: 08/05/21 14:54 Ketorolac Tromethamine (Ketorolac 30 Mg/Ml Sdv) Confirm Administered Dose 30 mg .ROUTE .STK-MED ONE Stop: 08/07/21 06:59 Lidocaine (Lidocaine 2% 5 Ml Sdv) Confirm Administered Dose 5 ml .ROUTE .STK-MED ONE Stop: 08/07/21 06:59 Lidocaine/Epinephrine (Lidocaine 2% With Epinephrine 1:200,000 20 Ml Sdv) Confirm Administered Dose 20 ml .ROUTE .STK-MED ONE Stop: 08/07/21 07:08 Midazolam HCl (Midazolam 1 Mg/Ml 2 Ml Sdv) Confirm Administered Dose 2 mg .ROUTE .STBuysideFX-MED ONE Stop: 08/07/21 06:57 Ondansetron HCl (Ondansetron 4 Mg/2 Ml Sdv) Confirm Administered Dose 4 mg .ROUTE .STBuysideFX-MED ONE Stop: 08/07/21 06:59 Propofol (Propofol 200 Mg/20 Ml Sdv) Confirm Administered Dose 200 mg .ROUTE .STK-MED ONE Stop: 08/07/21 06:57 Rocuronium [place] (Rocuronium [place] 50 Mg/5 Ml Syringe) Confirm Administered Dose 50 mg .ROUTE .STK-MED ONE Stop: 08/07/21 06:59
[2021-08-07] MEDS ORDERED: ceFAZolin 1 GM Vial ONE (07:25)
[2021-08-07] MEDS ORDERED: Sodium Chloride 0.9% 20 ML ONE (07:25)
[2021-08-07] MEDS: Lactated Ringers 1,000 ML IV SCH ×2 (07:29→20:28)
[2021-08-07] MEDS ORDERED: Fluorescein 5 ML Vial ONE (08:31)
[2021-08-07] MEDS ORDERED: Furosemide 40 MG/4 ML VIAL ONE (08:31)
[2021-08-07] MEDS ORDERED: Albuterol 0.083% 2.5 MG/3 ML Neb Soln NEB PRN (08:34)
[2021-08-07] MEDS ORDERED: Ondansetron 4 MG/2 ML SDV IVPUSH PRN (08:34)
[2021-08-07] MEDS ORDERED: HYDROmorphone 1 MG/ML Syringe IVPUSH PRN (08:34)
[2021-08-07] MEDS ORDERED: Morphine 2 MG/ML SYRINGE IVPUSH PRN (08:34)
[2021-08-07] MEDS ORDERED: Naloxone 0.4 MG/ML SDV IVPUSH PRN (08:34)
[2021-08-07] MEDS ORDERED: Metoclopramide 10 MG/2 ML SDV IVPUSH PRN (08:34)
[2021-08-07] MEDS ORDERED: HYDROmorphone 2 MG/ML Syringe ONE (08:41)
[2021-08-07] MEDS ORDERED: Promethazine 25 MG/ML SDV IM PRN (09:33)
[2021-08-07] MEDS ORDERED: Ketorolac 30 MG/ML SDV IVPUSH ONE (09:33)
[2021-08-07] MEDS ORDERED: Acetaminophen/oxyCODONE 325-5 MG Tab PO PRN (09:33)
--- NOTE | 2021-08-07 09:37 | PCM.OPNOTE ---
- General Post-Op/Procedure Note Date of Surgery/Procedure: 08/07/21 Operative Procedure(s): TVH,Vaginal repear Post-Op Diagnosis: Same Anesthesia Technique: General ET Tube Primary Surgeon: Da Suárez EBL in mLs: 150 Complications: None Condition: Good
--- NOTE | 2021-08-07 09:47 | PCM.POSTAN ---
POST ANESTHESIA ASSESSMENT - MENTAL STATUS Mental Status: Alert, Oriented - VITAL SIGNS Vital Signs: Last Vital Signs Temp 97.7 F 08/07/21 06:57 Pulse 72 08/07/21 06:57 Resp 15 08/07/21 06:57 BP 111/70 08/07/21 06:57 Pulse Ox 99 08/07/21 06:57 - RESPIRATORY Respiratory Status: Respiratory Rate WNL, Airway Patent, O2 Saturation Stable - CARDIOVASCULAR CV Status: Pulse Rate WNL, Blood Pressure Stable - GASTROINTESTINAL GI Status: No Symptoms - PAIN Pain Score: 6 - POST OP HYDRATION Hydration Status: Adequate & Stable
--- NOTE | 2021-08-07 10:04 | PCM48HPAN ---
Post Anesthesia Note - EVALUATION WITHIN 48HRS OF ANESTHETIC Vital Signs in Normal Range: Yes Patient Participated in Evaluation: Yes Respiratory Function Stable: Yes Airway Patent: Yes Cardiovascular Function Stable: Yes Hydration Status Stable: Yes Pain Control Satisfactory: Yes Nausea and Vomiting Control Satisfactory: Yes Mental Status Recovered: Yes Vital Signs: Last Vital Signs Temp 97.7 F 08/07/21 06:57 Pulse 72 08/07/21 06:57 Resp 15 08/07/21 06:57 BP 111/70 08/07/21 06:57 Pulse Ox 99 08/07/21 06:57 - COMMENTS/OBSERVATIONS Free Text/Narrative:: Pt doing well post-op. VSS. No apparent anesthetic complications. Dr. Kingsley Kelly
[2021-08-07] MEDS ORDERED: Acetaminophen 1,000 MG in Premix Bag 1 BAG IV PRN (10:27)
[2021-08-07] MEDS: fentaNYL 100 MCG/2 ML SDV IVPUSH PRN ×2 (10:27→10:50)
[2021-08-07] MEDS: Ondansetron 4 MG/2 ML SDV IVPUSH PRN ×3 (11:28→23:49)
[2021-08-07] MEDS: Morphine 4 MG/ML Syringe IVPUSH PRN ×2 (12:01→14:07)
--- NOTE | 2021-08-07 15:59 | OR ---
SURGEON: Da Suárez MD DATE OF PROCEDURE: 08/07/2021 PREOPERATIVE DIAGNOSES: Pelvic relaxation, cystocele, and prolapse of the uterus. POSTOPERATIVE DIAGNOSES: Pelvic relaxation, cystocele, and prolapse of the uterus. OPERATIONS PERFORMED: Total vaginal hysterectomy, vaginal bilateral salpingectomy for preserving both ovaries, Morales culdoplasty, Shannon plication with anterior repair for cystocele. PRIMARY SURGEON: Da Suárez MD AVIATION SAFETY INSPECTOR: OR tech. ANESTHESIA: General endotracheal intubation. ESTIMATED BLOOD LOSS: 150 mL. COMPLICATIONS: None. INDICATION FOR SURGERY: Bradner referred to the admit note. PROCEDURE: Patient was brought to the OR, properly identified, and after adequate level of general anesthesia, patient placed in lithotomy position, prepped and draped in sterile fashion as usual. A short weighted speculum placed in the vagina. Straight catheter was used to empty the bladder and then the operation started by applying a single-tooth tenaculum to the cervix. The cervix was pulled outward and then using electrocautery, circular incision in the vaginal mucosa around the cervix was done. The posterior cul-de-sac was entered posteriorly, and the peritoneum and the vagina were tacked posteriorly. The short weighted speculum replaced with extended long weighted speculum. The uterosacral ligament identified from both sides, clamped with a curved Zeppelin, transected, and suture ligated with 2-0 Vicryl pop-off. The same thing was done with the cardinal ligament. The cervicovesical space was entered anteriorly and the bladder pushed completely away from the operative field and then the anterior cul-de-sac was entered anteriorly. The broad ligament was clamped from both sides, transected, and suture ligated with 2-0 Vicryl pop-off. The uterine vessels suture-ligated at this step. The uterus delivered posteriorly and the superior pedicle was taken with a 90-degree Zeppelin. Both ovaries were preserved, and the tube was removed with the specimen. The superior pedicle tied with a free tie twice from both sides. Then, Morales culdoplasty using 2-0 Vicryl was done to obliterate the cul-de-sac and then the vaginal cuff was closed with 2-0 Vicryl in an interrupted [id number]. Then, attention was paid to the anterior vaginal wall and it was infiltrated with copious amount of normal saline, was opened in the midline, and dissected laterally away from the bladder. Then, Shannon plication was performed in the usual manner using 2-0 Vicryl pop-off, and after that, the anterior vaginal wall closed with 2-0 Vicryl continuous interlocking suture for hemostasis. While we were doing that, we asked Anesthesia personnel to give the patient fluorescein and cystoscopy was performed. The bladder was intact. Both ureteric orifices were seen with the dye coming from both of them. Thus, the patency of both ureters verified. Satisfied with this procedure, it was felt at this time that there was no need for posterior repair. The procedure was ended after putting Painter catheter and vaginal pack in the vagina. Instrument and sponge count was correct. Patient tolerated the procedure well, went to recovery room in stable general condition. VIJAYA PATEL /[id number]
[2021-08-07] MEDS: Ketorolac 30 MG/ML SDV IVPUSH PRN ×2 (17:45→23:47)
[2021-08-08 06:32] LABS: BLOOD UREA NITROGEN,BUN 9 mg/dL (7.0-18.0); CHLORIDE,CL 104 mmol/L (98-107); GLUCOSE RANDOM 102 mg/dL (74-106); POTASSIUM,K 4.2 mmol/L (3.5-5.1); SODIUM,NA 140 mmol/L (136-145)
--- NOTE | 2021-08-08 07:20 | PCM.SURGPN ---
- General Info Date of Service: 08/08/21 POD#: 1 Functional Status: Reports: Pain Controlled - Review of Systems General: Reports: No Symptoms HEENT: Reports: No Symptoms Pulmonary: Reports: No Symptoms Cardiovascular: Reports: No Symptoms Gastrointestinal: Reports: No Symptoms Genitourinary: Reports: No Symptoms Musculoskeletal: Reports: No Symptoms Skin: Reports: No Symptoms Neurological: Reports: No Symptoms Psychiatric: Reports: No Symptoms - Patient Data Vitals - Most Recent: Last Vital Signs Temp 37.3 C 08/08/21 04:00 Pulse 79 08/08/21 04:00 Resp 16 08/08/21 04:00 BP 109/56 L 08/08/21 04:00 Pulse Ox 98 08/08/21 04:00 Weight - Most Recent: 58.967 kg I&O - Last 24 Hours: Intake & Output 08/07/21 08/08/21 08/08/21 22:59 06:59 14:59 Intake Total 500 1350 Output Total 450 1300 Balance 50 50 Lab Results Last 24 Hrs: Laboratory Results - last 24 hr 08/08/21 08/08/21 Range/Units 05:43 05:43 WBC 12.67 H (4.0-11.0) K/uL RBC 3.43 L (4.30-5.90) M/uL Hgb 10.2 L (12.0-16.0) g/dL Hct 30.3 L (36.0-46.0) % MCV 88.3 (80.0-98.0) fL MCH 29.7 (27.0-32.0) pg MCHC 33.7 (31.0-37.0) g/dL RDW Std Deviation 43.4 (28.0-62.0) fl RDW Coeff of Del 13 (11.0-15.0) % Plt Count 271 (150-400) K/uL MPV 11.40 (7.40-12.00) fL Neut % (Auto) 66.5 (48.0-80.0) % Lymph % (Auto) 23.0 (16.0-40.0) % [place]fer[place] % (Auto) 10.2 (0.0-15.0) % Eos % (Auto) 0.2 (0.0-7.0) % Baso % (Auto) 0.1 (0.0-1.5) % Neut # (Auto) 8.4 H (1.4-5.7) K/uL Lymph # (Auto) 2.9 H (0.6-2.4) K/uL [place] # (Auto) 1.3 H (0.0-0.8) K/uL Eos # (Auto) 0.0 (0.0-0.7) K/uL Baso # (Auto) 0.0 (0.0-0.1) K/uL Nucleated RBC % 0.0 /100WBC Nucleated RBCs # 0 K/uL Sodium 140 (136-145) mmol/L Potassium 4.2 (3.5-5.1) mmol/L Chloride 104 (98-107) mmol/L Carbon Dioxide 28.0 (21.0-32.0) mmol/L BUN 9 (7.0-18.0) mg/dL Creatinine 0.5 L (0.6-1.0) mg/dL Est Cr Clr Drug Dosing 110.65 mL/min Estimated GFR (MDRD) > 60.0 ml/min Glucose 102 (74-106) mg/dL Calcium 8.8 (8.5-10.1) mg/dL Med Orders - Current: Current Medications Lactated Ringer's (Ringers, Lactated) 1,000 mls @ 125 mls/hr IV ASDIRECTED [facility] Last Admin: 08/07/21 20:28 Dose: 125 mls/hr Documented by: Ketorolac Tromethamine (Ketorolac 30 Mg/Ml Sdv) 30 mg IVPUSH Q6H PRN PRN Reason: Pain (severe 7-10) Stop: 08/12/21 09:33 Last Admin: 08/07/21 23:47 Dose: 30 mg Documented by: Morphine Sulfate (Morphine 4 Mg/Ml Syringe) 4 mg IVPUSH Q2H PRN PRN Reason: Pain (severe 7-10) Last Admin: 08/07/21 14:07 Dose: 4 mg Documented by: Ondansetron HCl (Ondansetron 4 Mg/2 Ml Sdv) 4 mg IVPUSH Q6H PRN PRN Reason: Nausea/Vomiting Last Admin: 08/07/21 23:49 Dose: 4 mg Documented by: Oxycodone/Acetaminophen (Acetaminophen/Oxycodone 325-5 Mg Tab) 1 tab PO Q4H PRN PRN Reason: Pain (moderate 4-6) Oxycodone/Acetaminophen (Acetaminophen/Oxycodone 325-5 Mg Tab) 2 tab PO Q4H PRN PRN Reason: Pain (moderate 4-6) Promethazine HCl (Promethazine 25 Mg/Ml Sdv) 25 mg IM Q6H PRN PRN Reason: Nausea/Vomiting Sodium Chloride (Sodium Chloride 0.9% 10 Ml Syringe) 10 ml FLUSH ASDIRECTED PRN PRN Reason: Keep Vein Open Sodium Chloride (Sodium Chloride 0.9% 2.5 Ml Syringe) 2.5 ml FLUSH ASDIRECTED PRN PRN Reason: Keep Vein Open Sodium Chloride (Sodium Chloride 0.9% 10 Ml Sdv) 10 ml IV ASDIRECTED PRN PRN Reason: IV Use Discontinued Medications Albuterol (Albuterol 0.083% 2.5 Mg/3 Ml Neb Soln) 2.5 mg NEB ONETIME PRN PRN Reason: Wheezing Cefazolin Sodium (Cefazolin 1 Gm Vial) Confirm Administered Dose 2 gm .ROUTE .STK-MED ONE Stop: 08/07/21 07:26 Dexamethasone (Dexamethasone 4 Mg/Ml 5 Ml Mdv) Confirm Administered Dose 20 mg .ROUTE .STK-MED ONE Stop: 08/07/21 06:59 Droperidol (Droperidol 5 Mg/2 Ml Sdv) 0.625 mg IVPUSH ONETIME PRN PRN Reason: Nausea/Vomiting Ephedrine Sulfate (Ephedrine 50 Mg/Ml Sdv) Confirm Administered Dose 50 mg .ROUTE .STK-MED ONE Stop: 08/07/21 06:59 Fentanyl (Fentanyl 250 Mcg/5 Ml Sdv) Confirm Administered Dose 250 mcg .ROUTE .STK-MED ONE Stop: 08/07/21 06:57 Fentanyl (Fentanyl 100 Mcg/2 Ml Sdv) 50 mcg IVPUSH Q5M PRN PRN Reason: Pain (mild 1-3) Last Admin: 08/07/21 10:50 Dose: 50 mcg Documented by: Fluorescein Sodium (Fluorescein 5 Ml Vial) Confirm Administered Dose 5 ml .ROUTE .STK-MED ONE Stop: 08/07/21 08:32 Furosemide (Furosemide 40 Mg/4 Ml Vial) Confirm Administered Dose 40 mg .ROUTE .STK-MED ONE Stop: 08/07/21 08:32 Glycopyrrolate (Glycopyrrolate 0.2 Mg/Ml Sdv) Confirm Administered Dose 0.2 mg .ROUTE .STK-MED ONE Stop: 08/07/21 06:59 Hydromorphone HCl (Hydromorphone 1 Mg/Ml Syringe) 1 mg IVPUSH Q10M PRN PRN Reason: Pain (moderate 4-6) Hydromorphone HCl (Hydromorphone 2 Mg/Ml Syringe) Confirm Administered Dose 2 mg .ROUTE .STK-MED ONE Stop: 08/07/21 08:42 Cefazolin Sodium/Dextrose 2 gm (/ Premix) 50 mls @ 100 mls/hr IV ONETIME ONE Stop: 08/05/21 14:54 Sodium Chloride (Normal Saline) Confirm Administered Dose 20 mls @ as directed .ROUTE .STK-MED ONE Stop: 08/07/21 07:26 Acetaminophen 1,000 mg/ Premix 100 mls @ 400 mls/hr IV Q6H PRN PRN Reason: Pain Last Admin: 08/07/21 10:33 Dose: 400 mls/hr Documented by: Acetaminophen (Ofirmev 1000 Mg/100 Ml) Confirm Administered Dose 0 mls @ as directed .ROUTE .STK-MED ONE Stop: 08/07/21 10:33 Acetaminophen (Ofirmev 1000 Mg/100 Ml) Confirm Administered Dose 100 mls @ as directed .ROUTE .STK-MED ONE Stop: 08/07/21 10:34 Ketorolac Tromethamine (Ketorolac 30 Mg/Ml Sdv) Confirm Administered Dose 30 mg .ROUTE .STK-MED ONE Stop: 08/07/21 06:59 Ketorolac Tromethamine (Ketorolac 30 Mg/Ml Sdv) 30 mg IVPUSH ONETIME ONE Stop: 08/07/21 09:34 Last Admin: 08/07/21 17:37 Dose: Not Given Documented by: Lidocaine (Lidocaine 2% 5 Ml Sdv) Confirm Administered Dose 5 ml .ROUTE .STK-MED ONE Stop: 08/07/21 06:59 Lidocaine/Epinephrine (Lidocaine 2% With Epinephrine 1:200,000 20 Ml Sdv) Confirm Administered Dose 20 ml .ROUTE .STK-MED ONE Stop: 08/07/21 07:08 Metoclopramide HCl (Metoclopramide 10 Mg/2 Ml Sdv) 10 mg IVPUSH ONETIME PRN PRN Reason: Nausea/Vomiting Midazolam HCl (Midazolam 1 Mg/Ml 2 Ml Sdv) Confirm Administered Dose 2 mg .ROUTE .STK-MED ONE Stop: 08/07/21 06:57 Midazolam HCl (Midazolam 1 Mg/Ml 2 Ml Sdv) Confirm Administered Dose 2 mg .ROUTE .STK-MED ONE Stop: 08/07/21 08:44 Miscellaneous Medication (Phenylephrine Hcl In 0.9% Nacl 1 Mg/10 Ml Syringe) Confirm Administered Dose 1 mg .ROUTE .STK-MED ONE Stop: 08/07/21 08:18 Morphine Sulfate (Morphine 2 Mg/Ml Syringe) 2 mg IVPUSH Q10M PRN PRN Reason: Pain (severe 7-10) Naloxone HCl (Naloxone 0.4 Mg/Ml Sdv) 0.1 mg IVPUSH ASDIRECTED PRN PRN Reason: Respiratory Depression Ondansetron HCl (Ondansetron 4 Mg/2 Ml Sdv) Confirm Administered Dose 4 mg .ROUTE .STK-MED ONE Stop: 08/07/21 06:59 Ondansetron HCl (Ondansetron 4 Mg/2 Ml Sdv) 4 mg IVPUSH ONETIME PRN PRN Reason: Nausea/Vomiting Propofol (Propofol 200 Mg/20 Ml Sdv) Confirm Administered Dose 200 mg .ROUTE .STK-MED ONE Stop: 08/07/21 06:57 Rocuronium [place] (Rocuronium [place] 50 Mg/5 Ml Syringe) Confirm Administered Dose 50 mg .ROUTE .STK-MED ONE Stop: 08/07/21 06:59 - Exam Wound/Incisions: Healing Well General: Alert, Oriented HEENT: Pupils Equal Neck: Supple Lungs: Clear to Auscultation, Normal Respiratory Effort Cardiovascular: Regular Rate, Regular Rhythm GI/Abdominal Exam: Normal Bowel Sounds, Soft, Non-Tender, No Organomegaly, No Distention, No Abnormal Bruit, No Mass, Pelvis Stable Extremities: Normal Inspection, Normal Range of Motion, Non-Tender, No Pedal Edema, Normal Capillary Refill Skin: Warm, Dry, Intact Neurological: No New Focal Deficit Psy/Mental Status: Alert, Normal Affect, Normal Mood Sepsis Event Note - Evaluation Sepsis Screening Result: No Definite Risk - Focused Exam Vital Signs: Vital Signs Temp Pulse Resp BP Pulse Ox 10/29/21 04:00 37.3 C 79 16 109/56 L 98 08/08/21 00:00 37.1 C 66 16 100/57 L 97 08/07/21 20:23 36.6 C 73 16 102/62 96 - Problem List Review Problem List Initiated/Reviewed/Updated: Yes - My Orders Last 24 Hours: Active Orders 24 hr Category Date Time Status Patient Status [ADT] Routine ADT 08/07/21 09:33 Active Overnight Pulse Oximetry [RC] Click to Edit Care 08/07/21 08:34 Active RT Incentive Spirometry [RC] Q2HWA Care 08/07/21 09:33 Active Urinary Catheter Removal [RC] Per Unit Routine Care 08/07/21 09:33 Active Vital Signs [RC] PER UNIT ROUTINE Care 08/07/21 09:33 Active Regular Diet [DIET] Diet 08/07/21 Dinner Active Acetaminophen/oxyCODONE [Percocet 325-5 MG] Med 08/07/21 09:33 Active 1 tab PO Q4H PRN Acetaminophen/oxyCODONE [Percocet 325-5 MG] Med 08/07/21 09:33 Active 2 tab PO Q4H PRN Ketorolac [Toradol] Med 08/07/21 09:33 Active 30 mg IVPUSH Q6H PRN Morphine Med 08/07/21 09:33 Active 4 mg IVPUSH Q2H PRN Ondansetron [Zofran] Med 08/07/21 09:33 Active 4 mg IVPUSH Q6H PRN Promethazine [Phenergan] Med 08/07/21 09:33 Active 25 mg IM Q6H PRN Peripheral IV Discontinue [OM.PC] Routine Oth 08/07/21 09:33 Ordered Pulse Oximetry Continuous Monitoring [OM.PC] Routine Oth 08/07/21 08:34 Orde red Sequential Compression Device [OM.PC] Per Unit Routine Oth 08/07/21 09:33 Ordered Resuscitation Status Routine Resus Stat 08/07/21 09:33 Ordered Medication Orders Lactated Ringer's (Ringers, Lactated) 1,000 mls @ 125 mls/hr IV ASDIRECTED KEV Last Admin: 08/07/21 20:28 Dose: 125 mls/hr Documented by: Infusion: 08/07/21 15:29 Dose: 125 mls/hr Documented by: Admin: 08/07/21 07:29 Dose: 125 mls/hr Documented by: LAURA Ketorolac Tromethamine (Ketorolac 30 Mg/Ml Sdv) 30 mg IVPUSH Q6H PRN PRN Reason: Pain (severe 7-10) Stop: 08/12/21 09:33 Last Admin: 08/07/21 23:47 Dose: 30 mg Documented by: Admin: 08/07/21 17:45 Dose: 30 mg Documented by: DORENE Morphine Sulfate (Morphine 4 Mg/Ml Syringe) 4 mg IVPUSH Q2H PRN PRN Reason: Pain (severe 7-10) Last Admin: 08/07/21 14:07 Dose: 4 mg Documented by: Admin: 08/07/21 12:01 Dose: 4 mg Documented by: LAURA Ondansetron HCl (Ondansetron 4 Mg/2 Ml Sdv) 4 mg IVPUSH Q6H PRN PRN Reason: Nausea/Vomiting Last Admin: 08/07/21 23:49 Dose: 4 mg Documented by: Admin: 08/07/21 17:45 Dose: 4 mg Documented by: Admin: 08/07/21 11:28 Dose: 4 mg Documented by: LAURA Oxycodone/Acetaminophen (Acetaminophen/Oxycodone 325-5 Mg Tab) 1 tab PO Q4H PRN PRN Reason: Pain (moderate 4-6) Oxycodone/Acetaminophen (Acetaminophen/Oxycodone 325-5 Mg Tab) 2 tab PO Q4H PRN PRN Reason: Pain (moderate 4-6) Promethazine HCl (Promethazine 25 Mg/Ml Sdv) 25 mg IM Q6H PRN PRN Reason: Nausea/Vomiting Sodium Chloride (Sodium Chloride 0.9% 10 Ml Syringe) 10 ml FLUSH ASDIRECTED PRN PRN Reason: Keep Vein Open Sodium Chloride (Sodium Chloride 0.9% 2.5 Ml Syringe) 2.5 ml FLUSH ASDIRECTED PRN PRN Reason: Keep Vein Open Sodium Chloride (Sodium Chloride 0.9% 10 Ml Sdv) 10 ml IV ASDIRECTED PRN PRN Reason: IV Use - Assessment Assessment (Free Text/Narrative):: S/P Hysterectomy doing well - Plan Plan (Free Text/Narrative):: Discharge home togay.
[2021-08-08] MEDS: Acetaminophen/oxyCODONE 325-5 MG Tab PO PRN ×2 (10:30→16:26)
[2021-08-08 17:39] VITALS: BP 112/65; PULSE 74
== END 2021-08-08 17:15 | disposition home or self-care (01) ==
LOC: MW.SDS 06:36 → MW.MS 16:14 → MW.SDS 08-08 17:15
PROVIDERS: ATTEND Obstetrics & Gynecology
DX: N80.0 Endometriosis of uterus (principal); N81.4 Uterovaginal prolapse, unspecified; N39.0 Urinary tract infection, site not specified; Z79.899 Other long term (current) drug therapy; Z88.0 Allergy status to penicillin; Z90.49 Acquired absence of other specified parts of digestive tract
CPT/HCPCS: 36415; 51702; 57240; 58270; 80048; 84703; 85025; 85027; 86850; 86900; 86901; A9270; J0131; J0690; J1100; J1170; J1885; J1940; J2250; J2270; J2370; J2405; J2704; J3010; J3490; J7030; J7120; 00944

== ENCOUNTER 2021-08-13 10:21 | Emergency (ER) | payer SELFPAY ==
--- NOTE | 2021-08-13 10:55 | EDM.PDOC ---
ED HPI GENERAL MEDICAL PROBLEM - General Chief Complaint: Genitourinary Problem Stated Complaint: UNABLE TO URINAT Time Seen by Provider: 08/13/21 10:23 Source of Information: Reports: Patient History Limitations: Reports: No Limitations - History of Present Illness INITIAL COMMENTS - FREE TEXT/NARRATIVE: HISTORY AND PHYSICAL: History of present illness: Patient is a 37-year-old female who presents to the emergency room with complaints of inability to void. On 08/07/2021 she had a total vaginal hysterectomy with vaginal repair by Dr. Suárez. She states she was discharged w ith a Araiza catheter in place, this was removed at the office yesterday morning. Since that time she has not been able to void. She has had subjective fevers, generalized abdominal pain, bilateral flank pain and burning sensation when attempting to void. She states she has had minimal bleeding since the surgery. Denies any vaginal discharge or swelling. Patient denies any fever, chills, headache, change in vision, syncope or near syncope. Denies any chest pain, back pain, shortness of breath or cough. Denies any abdominal pain, nausea, vomiting, diarrhea, constipation or dysuria. Has not noted any blood in urine or stool. Patient has been eating and drinking appropriately. No recent travel or sick contacts. Review of systems: As per history of present illness and below otherwise all systems reviewed and negative. Past medical history: As per history of present illness and as reviewed below otherwise noncontributory. Surgical history: As per history of present illness and as reviewed below otherwise noncontributory. Social history: See social history for further information Family history: As per history of present illness and as reviewed below otherwise noncontributor y. Physical exam: General: Well developed and well nourished 36-year-old female. Alert and orientated x 3. Nontoxic in appearance and in no acute distress. Vital signs are stable and have been reviewed by me. Nursing notes were reviewed. HEENT: Atraumatic, normocephalic, pupils equal and reactive bilaterally, negative for conjunctival pallor or scleral icterus, mucous membranes moist, trachea midline. No drooling or trismus noted. No meningeal signs. No hot potato voice noted. Lungs: Clear to auscultation bilaterally. No wheezes, rales, or rhonchi. Chest nontender. Normal work of breathing, no accessory muscles used. Heart: S1S2, regular rate and rhythm without overt murmur, gallops, or rubs. No JVD. No peripheral edema Abdomen: Soft, nondistended, generalized abdominal pain. Normoactive bowel sounds. Negative for masses or costovertebral tenderness. Pelvic: This was done with consent and a site supervisor at the bedside. External exam was done while Araiza catheter was in place. Normal-appearing external genitalia. No excessive swelling. No drainage/discharge noted. Skin: Intact, warm, dry. No lesions or rashes noted. Hematologic: No petechiae or purpra. Mucosa appropriate color and normal nail bed color and refill. Extremities: Atraumatic, moves all extremities per self without difficulty or deficits, negative for cords or calf pain. Neurovascular unremarkable. Neuro: Awake, alert, oriented. Cranial nerves II through XII unremarkable. Cerebellum unremarkable. Motor and sensory unremarkable throughout. Exam nonfocal. Psychiatric: Mood and affect are appropriate. Normal thought process. Answering questions appropriately. Please note that the patient was seen and evaluated during the 2019 SARS-CoV-2 novel coronavirus pandemic period. Community viral transmission is ongoing at time of this encounter and the emergency department is operating under pandemic response procedures. Medical Decision Making: Patient is a 36-year-old female who presents to the emergency room with complaints of inability to void since having a Araiza catheter removed yesterday. Patient had a Araiza catheter in place after having a TVH on 08/07/2021. She is complaining of generalized abdominal pain, bilateral flank pain and burning sensation when she needs to void. Bladder scan shows greater than 1500cc, indwelling Araiza catheter placed. Patient felt immediate relief with an output of 2000cc. Waiting on lab work and CT results. Mild lab derangements, no acute or concerning findings. CT shows postoperative changes of hysterectomy with fat stranding and mild fluid within the p ostsurgical bed. There are no defined fluid collections to suggest localized abscess. The ovaries appeared mildly enlarged/inflamed which is likely postsurgical. Distal ureters are not well distinguished due to adjacent postsurgical changes, however, there is no upstream dilatation. No obstructing lesion identified. There is no hydronephrosis. Bladder is completely decompressed with Araiza catheter with small amount of presumably iatrogenic air within the lumen. Spoke with Dr Suárez, will have her follow up with him for re-evaluation. I have talked with the patient about today's findings, in addition to providing specific details for plan of care. Reassessment at the time of disposition demonstrates that the patient is in no acute distress. The patient is stable for discharge, counseling was provided and we discussed in great detail signs and symptoms that would prompt them to return to the Emergency Department. Medication, follow up and supportive care measures were reviewed and discussed. Voices understanding and is agreeable to plan of care. Denies any further questions or concerns at this time. Diagnostics: CBC, CMP, UA, CT abd/pelvis Therapeutics: IV fluids Prescription: None Impression: Urinary retention Plan: 1. You were evaluated today on an emergent basis. Your labs and CT of the abdomen and pelvis are normal. Your difficulty voiding is likely due to recent surgical swelling/healing. Please continue with araiza care. 2. You can alternate Tylenol and ibuprofen as needed for pain and fever management. 3. Please follow up with Dr Suárez for re-evaluation and further care/management. 4. If your symptoms should worsen, new symptoms develop or any of the signs and symptoms we discussed should arise please return to the emergency room or call 911 (if needed). Definitive disposition and diagnosis as appropriate pending reevaluation and review of above. abdomen Pain Score (Numeric/FACES): 9 - Related Data Allergies Allergy/AdvReac Type Severity Reaction Status Date / Time Penicillins Allergy Difficulty Verified 08/13/21 10:37 Breathing Home Meds: Home Meds . [No Known Home Meds] 08/01/21 [History] Past Medical History - Past Health History Medical/Surgical History: Denies Medical/Surgical History HEENT History: Reports: Epistaxis Cardiovascular History: Reports: None Respiratory History: Reports: None Gastrointestinal History: Reports: None Genitourinary History: Reports: Other (See Below) Other Genitourinary History: uterine prolapse ICE CUTTER History: Reports: , Prolapsed Uterus Musculoskeletal History: Reports: None Neurological History: Reports: None Psychiatric History: Reports: None Endocrine/Metabolic History: Reports: None Hematologic History: Reports: None Immunologic History: Reports: None Oncologic (Cancer) History: Reports: None Dermatologic History: Reports: None - Infectious Disease History Infectious Disease History: Reports: None - Past Surgical History Head Surgeries/Procedures: Reports: None HEENT Surgical History: Reports: None Cardiovascular Surgical History: Reports: None Respiratory Surgical History: Reports: None GI Surgical History: Reports: Appendectomy Female Surgical History: Reports: Hysterectomy Endocrine Surgical History: Reports: None Neurological Surgical History: Reports: None Musculoskeletal Surgical History: Reports: None Oncologic Surgical History: Reports: None Dermatological Surgical History: Reports: None Social & Family History - Family History Family Medical History: No Pertinent Family History Endocrine/Metabolic: Reports: Diabetes, type II - Tobacco Use Tobacco Use Status *Q: Never Tobacco User - Caffeine Use Caffeine Use: Reports: Coffee - Recreational Drug Use Recreational Drug Use: No ED ROS GENERAL - Review of Systems Review Of Systems: Comprehensive ROS is negative, except as noted in HPI. ED EXAM, RENAL/ - Physical Exam Exam: See Below (See dictation) Course - Vital Signs Last Recorded V/S: Last Vital Signs Temp 98.2 F 08/13/21 10:34 Pulse 77 08/13/21 13:10 Resp 16 08/13/21 11:58 BP 101/72 08/13/21 13:10 Pulse Ox 99 08/13/21 13:10 - Orders/Labs/Meds Orders: Active Orders 24 hr Category Date Time Status Bladder Scan [RC] ASDIRECTED Care 08/13/21 10:24 Active Labs: Laboratory Tests 08/13/21 08/13/21 08/13/21 Range/Units 10:50 11:03 11:03 WBC 11.63 H (4.0-11.0) K/uL RBC 3.95 L (4.30-5.90) M/uL Hgb 11.7 L (12.0-16.0) g/dL Hct 35.4 L (36.0-46.0) % MCV 89.6 (80.0-98.0) fL MCH 29.6 (27.0-32.0) pg MCHC 33.1 (31.0-37.0) g/dL RDW Std Deviation 43.4 (28.0-62.0) fl RDW Coeff of Del 13 (11.0-15.0) % Plt Count 333 (150-400) K/uL MPV 11.20 (7.40-12.00) fL Neut % (Auto) 69.4 (48.0-80.0) % Lymph % (Auto) 19.9 (16.0-40.0) % [place] % (Auto) 8.4 (0.0-15.0) % Eos % (Auto) 2.1 (0.0-7.0) % Baso % (Auto) 0.2 (0.0-1.5) % Neut # (Auto) 8.1 H (1.4-5.7) K/uL Lymph # (Auto) 2.3 (0.6-2.4) K/uL [place] # (Auto) 1.0 H (0.0-0.8) K/uL Eos # (Auto) 0.2 (0.0-0.7) K/uL Baso # (Auto) 0.0 (0.0-0.1) K/uL Nucleated RBC % 0.0 /100WBC Nucleated RBCs # 0 K/uL Sodium 139 (136-145) mmol/L Potassium 4.3 (3.5-5.1) mmol/L Chloride 102 (98-107) mmol/L Carbon Dioxide 29.2 (21.0-32.0) mmol/L BUN 14 (7.0-18.0) mg/dL Creatinine 0.5 L (0.6-1.0) mg/dL Est Cr Clr Drug Dosing 116.25 mL/min Estimated GFR (MDRD) > 60.0 ml/min Glucose 95 (74-106) mg/dL Calcium 9.3 (8.5-10.1) mg/dL Total Bilirubin 0.5 (0.2-1.0) mg/dL AST 13 L (15-37) IU/L ALT 38 (14-63) IU/L Alkaline Phosphatase 116 (46-116) U/L Total Protein 8.0 (6.4-8.2) g/dL Albumin 3.9 (3.4-5.0) g/dL Globulin 4.1 H (2.6-4.0) g/dL Albumin/Globulin Ratio 1.0 (0.9-1.6) Urine Color YELLOW Urine Appearance CLEAR Urine pH 6.0 (5.0-8.0) Ur Specific [place] 1.020 (1.001-1.035) Urine Protein NEGATIVE (NEGATIVE) mg/dL Urine Glucose (UA) NEGATIVE (NEGATIVE) mg/dL Urine Ketones NEGATIVE (NEGATIVE) mg/dL Urine Occult Blood TRACE-INTACT H (NEGATIVE) Urine Nitrite NEGATIVE (NEGATIVE) Urine Bilirubin NEGATIVE (NEGATIVE) Urine Urobilinogen 0.2 (<2.0) EU/dL Ur Leukocyte Esterase NEGATIVE (NEGATIVE) Urine RBC NONE SEEN (0-2/HPF) Urine WBC 0-1 (0-5/HPF) Ur Epithelial Cells RARE (NONE-FEW) Urine Bacteria RARE (NEGATIVE) Urine Mucus LIGHT (NONE-MOD) Departure - Departure Time of Disposition: 13:56 Disposition: Home, Self-Care 01 Clinical Impression: Postoperative urinary retention - Discharge Information Instructions: Acute Urinary Retention, Female, [id number] Referrals: Da Suárez MD [Primary Care Provider] - Forms: ED Department Discharge Additional Instructions: The following information is given to patients seen in the emergency department who are being discharged to home. This information is to outline your options for follow-up care. We provide all patients seen in our emergency department with a follow-up referral. The need for follow-up, as well as the timing and circumstances, are variable depending upon the specifics of your emergency department visit. If you don't have a primary care physician on staff, we will provide you with a referral. We always advise you to contact your personal physician following an emergency department visit to inform them of the circumstance of the visit and for follow-up with them and/or the need for any referrals to a consulting specialist. The emergency department will also refer you to a specialist when appropriate. This referral assures that you have the opportunity for follow-up care with a specialist. All of these measure are taken in an effort to provide you with optimal care, which includes your follow-up. Under all circumstances we always encourage you to contact your private physician who remains a resource for coordinating your care. When calling for follow-up care, please make the office aware that this follow-up is from your recent emergency room visit. If for any reason you are refused follow-up, please contact the [facility] Emergency Department at and asked to speak to the emergency department charge nurse. [facility] [address] [place] [id number] [id number] Thank you for choosing the [facility] emergency department in [place] for your medical needs today. It was a pleasure caring for you. Today you were seen in the emergency department for urinary retention 1. You were evaluated today on an emergent basis. Your labs and CT of the abdomen and pelvis are normal. Your difficulty voiding is likely due to recent surgical swelling/healing. Please continue with araiza care. 2. You can alternate Tylenol and ibuprofen as needed for pain and fever management. 3. Please follow up with Dr Suárez for re-evaluation and further care/management. 4. If your symptoms should worsen, new symptoms develop or any of the signs and symptoms we discussed should arise please return to the emergency room or call 911 (if needed). Sepsis Event Note (ED) - Evaluation Sepsis Screening Result: No Definite Risk - Focused Exam Vital Signs: Vital Signs Temp Pulse Resp BP Pulse Ox 08/13/21 13:10 77 101/72 99 08/13/21 11:58 70 16 108/71 99 08/13/21 10:34 98.2 F 78 17 123/88 99 - My Orders Last 24 Hours: My Active Orders 08/13/21 10:24 Bladder Scan [RC] ASDIRECTED - Assessment/Plan Last 24 Hours: My Active Orders 08/13/21 10:24 Bladder Scan [RC] ASDIRECTED
[2021-08-13 11:41] LABS: BLOOD UREA NITROGEN,BUN 14 mg/dL (7.0-18.0); CARBON DIOXIDE,CO2 29.2 mmol/L (21.0-32.0); CHLORIDE,CL 102 mmol/L (98-107); GLUCOSE RANDOM 95 mg/dL (74-106); POTASSIUM,K 4.3 mmol/L (3.5-5.1); SODIUM,NA 139 mmol/L (136-145)
--- NOTE | 2021-08-13 13:36 | CT ---
INDICATION: Recent transvaginal hysterectomy, unable to void, flank pain bilaterally TECHNIQUE: CT abdomen and pelvis acquired with IV contrast. COMPARISON: CT abdomen and pelvis February 10, 2017 FINDINGS: Lower chest: Unremarkable. Liver: Unremarkable. Spleen: Unremarkable. Pancreas: Unremarkable. Gallbladder and bile ducts: Unremarkable. Kidneys: Unremarkable. Bladder is completely decompressed with Painter catheter small amount of air is visualized within the bladder, likely post catheterization. Adrenal glands: Unremarkable. GI tract: Unremarkable. Appendix not definitely identified Vascular structures: Negative. No sign of aneurysm. Lymph nodes: Unremarkable. Miscellaneous: Mild ascites within the pelvis. Asymmetric [id number]-left breast tissue was also present in 2017. Pelvic Organs: Postsurgical changes of hysterectomy. There is fat stranding within the postsurgical bed without defined fluid collection to suggest localized abscess. Bones: Unremarkable for age. IMPRESSION: Postoperative changes of hysterectomy with fat stranding and mild fluid within the postsurgical bed. There are no defined fluid collections to suggest localized abscess. The ovaries appeared mildly enlarged/inflamed which is likely postsurgical. Distal ureters are not well distinguished due to adjacent postsurgical changes, however, there is no upstream dilatation. No obstructing lesion identified. There is no hydronephrosis. Bladder is completely decompressed with Painter catheter with small amount of presumably iatrogenic air within the lumen. Please note that all CT scans at this facility use dose modulation, iterative reconstruction, and/or weight-based dosing when appropriate to reduce radiation dose to as low as reasonably achievable. Dictated by Shirley Weathers MD @ 08/13/2021 1:34:27 PM (Electronically Signed)
[2021-08-13 15:02] VITALS: BP 102/66; PULSE 79
[2021-08-13] MEDS ORDERED: Iopamidol 755 MG/ML 500 ML Multipack Bottle IVPUSH STA (17:10)
== END 2021-08-13 15:14 | disposition home or self-care (01) ==
LOC: MW.ED 10:21
DX: R33.9 Retention of urine, unspecified (principal); Z98.890 Other specified postprocedural states; Z88.0 Allergy status to penicillin
CPT/HCPCS: 36415; 51702; 74177; 80053; 81001; 85025; 99284; Q9967